=== PATIENT | female | born 1945 | race Caucasian/White ===

== ENCOUNTER 2020-08-09 07:44 | Emergency (ER) | payer MEDICARE, OTHER ==
[2020-08-09 08:43] LABS: #Basophils 0.1 thou/uL (0.0-0.2); #Eosinphils 0.1 thou/uL (0.0-0.7); #Lymphocytes 1.6 thou/uL (1.20-3.40); #Monocytes 0.5 thou/uL (0.11-0.59); #Neutrophils 4.1 thou/uL (1.40-6.50); %Basophils 0.8 % (0.0-1.0); %Eosinophils 2.2 % (0.0-10.0); %Lymphocytes 25.1 % (21.0-51.0); %Monocytes 8.1 % (0.0-10.0); %Neutrophils 63.7 % (42.0-75.0); Hemoglobin 14.9 g/dL (12.0-16.0); Mean Corpuscular HGB CONC 30.1 g/dL (32.0-36.0); Mean Corpuscular Hemoglobin 28.8 pg (27.0-31.0); Mean Corpuscular Volume 95.6 fL (78.0-98.0); Mean Platelet Volume 7.4 fL (7.4-10.4); Platelet Count 311 thou/uL (130-400); RBC Distribution Width 13.7 % (11.5-14.5); Red Blood Cell (RBC) Count 5.18 mill/uL (4.20-5.40); White Blood Cell (WBC) Count 6.4 thou/uL (4.8-10.8)
[2020-08-09 09:02] LABS: ALT (SGPT) 7 U/L (8-55); AST (SGOT) 12 U/L (5-34); Albumin 3.8 g/dL (3.4-4.8); Alkaline Phosphatase 36 U/L (40-110); Anion Gap 13 mmol/L (10-20); BUN (Urea Nitrogen) 48 mg/dL (9.8-20.1); Bilirubin, Total 0.5 mg/dL (0.2-1.2); Calc. Creatinine Clearance 0 mL/min (70-130); Calcium 9.7 mg/dL (7.8-10.44); Carbon Dioxide 25 mmol/L (23-31); Chloride 105 mmol/L (98-107); Globulin 3.5 g/dL (2.4-3.5); Glucose 103 mg/dL (83-110); Protein, Total 7.3 g/dL (5.8-8.1); Sodium 138 mmol/L (136-145)
== END 2020-08-09 11:12 | disposition home or self-care (01) ==
LOC: ERS 07:44
DX: E11.649 Type 2 diabetes mellitus with hypoglycemia without coma (principal); E11.22 Type 2 diabetes mellitus with diabetic chronic kidney disease; N18.9 Chronic kidney disease, unspecified; I50.9 Heart failure, unspecified; F17.210 Nicotine dependence, cigarettes, uncomplicated; Z79.899 Other long term (current) drug therapy; Z79.84 Long term (current) use of oral hypoglycemic drugs
CPT/HCPCS: 36415; 36416; 71045; 80053; 85025; 94760

== ENCOUNTER 2021-01-14 13:31 | Emergency (ER) | payer MEDICARE, OTHER ==
[2021-01-14] MEDS ORDERED: Aspirin 325 MG TAB ONE (14:01)
[2021-01-14 14:10] LABS: #Eosinphils 0.1 thou/uL (0.0-0.7); #Lymphocytes 0.9 thou/uL (1.20-3.40); #Monocytes 0.4 thou/uL (0.11-0.59); %Basophils 0.5 % (0.0-1.0); %Eosinophils 1.4 % (0.0-10.0); %Lymphocytes 19.8 % (21.0-51.0); %Monocytes 9.7 % (0.0-10.0); %Neutrophils 68.6 % (42.0-75.0); Hemoglobin 8.8 g/dL (12.0-16.0); Mean Corpuscular HGB CONC 32.5 g/dL (32.0-36.0); Mean Corpuscular Hemoglobin 32.8 pg (27.0-31.0); Mean Platelet Volume 6.6 fL (7.4-10.4); Platelet Count 348 thou/uL (130-400); Red Blood Cell (RBC) Count 2.68 mill/uL (4.20-5.40); White Blood Cell (WBC) Count 4.4 thou/uL (4.8-10.8)
[2021-01-14 14:34] LABS: ALT (SGPT) 32 U/L (8-55); AST (SGOT) 69 U/L (5-34); Albumin 3.2 g/dL (3.4-4.8); Alkaline Phosphatase 51 U/L (40-110); Anion Gap 10 mmol/L (10-20); BUN (Urea Nitrogen) 29 mg/dL (9.8-20.1); Bilirubin, Total 0.2 mg/dL (0.2-1.2); Calc. Creatinine Clearance 0 mL/min (70-130); Calcium 8.8 mg/dL (7.8-10.44); Carbon Dioxide 29 mmol/L (23-31); Chloride 109 mmol/L (98-107); Globulin 2.3 g/dL (2.4-3.5); Glucose 115 mg/dL (83-110); Potassium 4.7 mmol/L (3.5-5.1); Protein, Total 5.5 g/dL (5.8-8.1); Sodium 143 mmol/L (136-145)
== END 2021-01-14 17:30 | disposition home or self-care (01) ==
LOC: ERS 13:31
DX: R06.00 Dyspnea, unspecified (principal); R55 Syncope and collapse; E11.9 Type 2 diabetes mellitus without complications; I50.9 Heart failure, unspecified; F17.210 Nicotine dependence, cigarettes, uncomplicated
CPT/HCPCS: 36415; 71045; 80053; 83880; 84484; 85025; 93005

== ENCOUNTER 2022-11-08 11:46 | Observation (INO) | payer MEDICARE, OTHER ==
[2022-11-08 12:18] LABS: #Eosinphils 0.3 thou/uL (0.0-0.7); #Monocytes 0.6 thou/uL (0.11-0.59); #Neutrophils 3.7 thou/uL (1.40-6.50); %Basophils 0.6 % (0.0-1.0); %Eosinophils 4.5 % (0.0-10.0); %Lymphocytes 26.6 % (21.0-51.0); %Monocytes 9.4 % (0.0-10.0); %Neutrophils 58.6 % (42.0-75.0); Hematocrit 38.9 % (36.0-47.0); Hemoglobin 12.1 g/dL (12.0-16.0); Mean Corpuscular HGB CONC 31.1 g/dL (32.0-36.0); Mean Corpuscular Hemoglobin 29.7 pg (27.0-31.0); Mean Corpuscular Volume 95.3 fl (78.0-98.0); Mean Platelet Volume 9.1 fL (7.4-10.4); Platelet Count 306 10x3/uL (130-400); RBC Distribution Width 14.5 % (11.5-14.5); Red Blood Cell (RBC) Count 4.08 mill/uL (4.20-5.40); White Blood Cell (WBC) Count 6.3 10x3/uL (4.8-10.8)
[2022-11-08 12:46] LABS: ALT (SGPT) Less than 7 U/L (8-55); AST (SGOT) 11 U/L (5-34); Albumin 3.4 g/dL (3.4-4.8); Alkaline Phosphatase 28 U/L (40-110); Anion Gap 13 mmol/L (10-20); BUN (Urea Nitrogen) 20 mg/dL (9.8-20.1); Bilirubin, Total 0.3 mg/dL (0.2-1.2); Calc. Creatinine Clearance 0 mL/min (70-130); Calcium 8.7 mg/dL (7.8-10.44); Carbon Dioxide 24 mmol/L (23-31); Chloride 108 mmol/L (98-107); Estimated GFR 50; Globulin 2.9 g/dL (2.4-3.5); Glucose 74 mg/dL (83-110); Potassium 4.7 mmol/L (3.5-5.1); Protein, Total 6.3 g/dL (5.8-8.1); Sodium 140 mmol/L (136-145)
[2022-11-08] MEDS ORDERED: Ondansetron ODT 4 MG TAB PO PRN (14:41)
[2022-11-08] MEDS ORDERED: Ondansetron PF 4 MG/2 ML Vial IVP PRN (14:41)
[2022-11-08] MEDS ORDERED: Acetaminophen 500 MG TAB PO PRN (14:41)
[2022-11-08] MEDS: Sodium Chloride 0.9% 1,000 ML IV SCH (16:21)
[2022-11-08] MEDS: Famotidine 20 MG TAB PO SCH (20:42)
[2022-11-08] MEDS ORDERED: Gabapentin 300 MG CAP PO SCH (21:00)
[2022-11-08] MEDS ORDERED: Rosuvastatin 10 MG TAB PO SCH (21:00)
[2022-11-09] MEDS ORDERED: Amlodipine 10 MG TAB PO SCH (03:45)
[2022-11-09] MEDS ORDERED: Amlodipine 5 MG TAB PO SCH (03:45)
[2022-11-09] MEDS: Sodium Chloride 0.9% 1,000 ML IV SCH (03:53)
[2022-11-09 04:53] LABS: #Eosinphils 0.3 thou/uL (0.0-0.7); #Monocytes 0.6 thou/uL (0.11-0.59); #Neutrophils 3.5 thou/uL (1.40-6.50); %Basophils 0.5 % (0.0-1.0); %Eosinophils 4.1 % (0.0-10.0); %Lymphocytes 32.1 % (21.0-51.0); %Monocytes 9.2 % (0.0-10.0); %Neutrophils 53.9 % (42.0-75.0); Hematocrit 38.9 % (36.0-47.0); Hemoglobin 12.4 g/dL (12.0-16.0); Mean Corpuscular HGB CONC 31.9 g/dL (32.0-36.0); Mean Corpuscular Hemoglobin 29.7 pg (27.0-31.0); Mean Corpuscular Volume 93.3 fl (78.0-98.0); Mean Platelet Volume 9.1 fL (7.4-10.4); Platelet Count 309 10x3/uL (130-400); RBC Distribution Width 14.3 % (11.5-14.5); Red Blood Cell (RBC) Count 4.17 mill/uL (4.20-5.40); White Blood Cell (WBC) Count 6.4 10x3/uL (4.8-10.8)
[2022-11-09 05:17] LABS: ALT (SGPT) Less than 7 U/L (8-55); AST (SGOT) 13 U/L (5-34); Albumin 3.4 g/dL (3.4-4.8); Alkaline Phosphatase 29 U/L (40-110); Anion Gap 9 mmol/L (10-20); BUN (Urea Nitrogen) 19 mg/dL (9.8-20.1); Bilirubin, Total 0.3 mg/dL (0.2-1.2); Calc. Creatinine Clearance 49 mL/min (70-130); Calcium 8.7 mg/dL (7.8-10.44); Carbon Dioxide 25 mmol/L (23-31); Chloride 106 mmol/L (98-107); Estimated GFR 61; Globulin 2.9 g/dL (2.4-3.5); Glucose 69 mg/dL (83-110); Magnesium 2.7 mg/dL (1.6-2.6); Potassium 4.4 mmol/L (3.5-5.1); Protein, Total 6.3 g/dL (5.8-8.1); Sodium 136 mmol/L (136-145)
[2022-11-09 07:23] VITALS: TEMP 97.6
[2022-11-09] MEDS ORDERED: Aspirin 81 mg Enteric Coated Tablet PO SCH (09:00)
[2022-11-09] MEDS ORDERED: Gabapentin 300 MG CAP PO SCH (09:00)
[2022-11-09] MEDS ORDERED: Cholecalciferol 1,000 UNITS (25 MCG) TAB PO SCH (09:00)
[2022-11-09] MEDS ORDERED: Clopidogrel Bisulfate 75 MG TAB PO SCH (09:00)
[2022-11-09] MEDS: Famotidine 20 MG TAB PO SCH (09:23)
[2022-11-09 09:47] VITALS: BMI 26.1
[2022-11-09 10:42] VITALS: BP 126/57
[2022-11-10] MEDS ORDERED: Famotidine 20 MG TAB PO SCH (09:00)
== END 2022-11-09 11:45 | disposition home or self-care (01) ==
LOC: ERS 11:46 → 2SW 15:31
PROVIDERS: ADMIT Family Medicine; ATTEND Family Medicine
DX: I48.0 Paroxysmal atrial fibrillation (principal); I25.10 Atherosclerotic heart disease of native coronary artery without angina pectoris; I73.9 Peripheral vascular disease, unspecified; E78.5 Hyperlipidemia, unspecified; R53.83 Other fatigue; I25.2 Old myocardial infarction; I49.5 Sick sinus syndrome; I71.40 Abdominal aortic aneurysm, without rupture, unspecified; I65.22 Occlusion and stenosis of left carotid artery; N18.30 Chronic kidney disease, stage 3 unspecified; N17.9 Acute kidney failure, unspecified; E11.22 Type 2 diabetes mellitus with diabetic chronic kidney disease; I95.1 Orthostatic hypotension; I12.9 Hypertensive chronic kidney disease with stage 1 through stage 4 chronic kidney disease, or unspecified chronic kidney disease; M06.9 Rheumatoid arthritis, unspecified; Z79.899 Other long term (current) drug therapy; F17.210 Nicotine dependence, cigarettes, uncomplicated; Z95.0 Presence of cardiac pacemaker; Z79.84 Long term (current) use of oral hypoglycemic drugs
CPT/HCPCS: 71045; 80053; 82962 ×2; 83735; 83880; 84484; 85025; 93005; 93880; 99285; G0378 ×2; 36415; 36416; 84443; J7050

== ENCOUNTER 2023-02-26 12:46 | Inpatient (IN) | payer MEDICARE, OTHER ==
[~2023-02-26 12:46] MED LIST: Iopamidol-370 76% 500 ML MDV (1 ML CHARGE) ONE
[2023-02-26] MEDS ORDERED: fentaNYL 50 mcg/mL 1 mL Vial ONE (13:08)
[2023-02-26] MEDS ORDERED: Fentanyl CADD 100 ML IV SCH (13:15)
[2023-02-26] MEDS ORDERED: Vancomycin (BATCH) 1.5 GM in Premix 1 BAG IVPB SCH (13:15)
[2023-02-26] MEDS ORDERED: Magnesium 2 GM/50 ML BAG (IN WATER) ONE (13:21)
[2023-02-26] MEDS ORDERED: NOREPINEPHRINE 8 MG/250 ML-D5W 250 ML ONE (13:22)
[2023-02-26 13:44] LABS: #Eosinphils 0.1 thou/uL (0.0-0.7); #Monocytes 1.1 thou/uL (0.11-0.59); #Neutrophils 6.1 thou/uL (1.40-6.50); %Basophils 0.2 % (0.0-1.0); %Eosinophils 0.8 % (0.0-10.0); %Lymphocytes 16.1 % (21.0-51.0); %Monocytes 12.2 % (0.0-10.0); %Neutrophils 70.2 % (42.0-75.0); Hematocrit 44.1 % (36.0-47.0); Hemoglobin 13.6 g/dL (12.0-16.0); Mean Corpuscular HGB CONC 30.8 g/dL (32.0-36.0); Mean Corpuscular Hemoglobin 28.8 pg (27.0-31.0); Mean Corpuscular Volume 93.2 fl (78.0-98.0); Mean Platelet Volume 9.8 fL (7.4-10.4); Platelet Count 319 10x3/uL (130-400); RBC Distribution Width 14.5 % (11.5-14.5); Red Blood Cell (RBC) Count 4.73 mill/uL (4.20-5.40); White Blood Cell (WBC) Count 8.7 10x3/uL (4.8-10.8)
[2023-02-26 13:49] LABS: ALT (SGPT) 12 U/L (8-55); AST (SGOT) 31 U/L (5-34); Albumin 3.7 g/dL (3.4-4.8); Alkaline Phosphatase 45 U/L (40-110); Anion Gap 15 mmol/L (10-20); BUN (Urea Nitrogen) 43 mg/dL (9.8-20.1); Bilirubin, Total 0.4 mg/dL (0.2-1.2); Calc. Creatinine Clearance 0 mL/min (70-130); Calcium 9.6 mg/dL (7.8-10.44); Carbon Dioxide 26 mmol/L (23-31); Chloride 100 mmol/L (98-107); Estimated GFR 36; Globulin 4.5 g/dL (2.4-3.5); Glucose 110 mg/dL (83-110); Potassium 5.4 mmol/L (3.5-5.1); Protein, Total 8.2 g/dL (5.8-8.1); Sodium 136 mmol/L (136-145)
[2023-02-26 13:49] LABS: Analyzer IN Cardio ER; Base Excess (BEa) -3.8 mEq/L (-2.0 to +3.0); Calcium, Ionized (arterial) 1.24 mmol/L (1.12-1.30); Carboxyhemoglobin (COHb) 1.9 gm% (0.0-3.0); Hematocrit-ABG 39 % (36.0-47.0); Hemoglobin (Hb) 13.2 g/dL (12.0-16.0); O2 Tension (PaO2), arterial 112.9 mmHg (> 70.0); Potassium - ABG Lab 4.74 mmol/L (3.70-5.30); pH, Arterial 7.217 (7.35-7.45)
[2023-02-26 13:51] LABS: CO2 Tension 62.8 mmHg (35.0-45.0); Puncture Site LBA
[2023-02-26] MEDS ORDERED: Sodium Chloride 0.9% 100 ML ONE (14:00)
[2023-02-26] MEDS ORDERED: Cefepime 2 GM VIAL ONE (14:00)
[2023-02-26 14:17] LABS: Troponin I 1.774 ng/mL (< 0.028)
[2023-02-26 14:26] LABS: Acetaminophen Less than 10 mcg/mL (10.0-30.0); Alcohol Less than 10.0 mg/dL (Less than 10); Salicylate Less than 8.0 mg/dL (15.0-30.0)
[2023-02-26] MEDS ORDERED: Furosemide 40 MG/4 ML VIAL ONE (14:57)
[2023-02-26] MEDS ORDERED: methylPREDNISolone Sod Succ/PF 125 MG/2 ML VIAL ONE (14:58)
[2023-02-26 15:05] LABS: Amphetamine Not Detected (NotDetected); Barbiturates Screen Not Detected (NotDetected); Benzodiazepine Screen Not Detected (NotDetected); Cocaine Metabolite Screen Not Detected (NotDetected); Methadone Not Detected (NotDetected); Methamphetamine Not Detected (NotDetected); Opiate Screen Detected (NotDetected); Oxycodone Screen Not Detected (NotDetected); Phencyclidine (PCP) Not Detected (NotDetected); THC/Cannabinoid Screen Not Detected (NotDetected); Tricyclic Screen Not Detected (NotDetected)
[2023-02-26 15:11] LABS: Bacteria/HPF 4+ HPF (None Seen); Bilirubin Negative (Negative); Blood, Urine 1+ (Negative); CAUTI Indications for Culture Alt mental st,lethar; Clarity Clear (Clear); Glucose, Urine (Dipstick) Normal (Negative); Ketone, Urine Negative (Negative); Leukocyte Negative Leu/uL (Negative); Nitrite Negative (Negative); Protein, Urine (Dipstick) 50 mg/dL (Neg-Trace); Specific Gravity, Urine 1.022 (1.002-1.036); Squamous Epithelial 0-3 HPF (0-3); Urobilinogen Normal mg/dL (Less than 2); WBC/HPF 0-3 HPF (0-3)
[2023-02-26 15:14] LABS: Urine Culture Reflex No No
[2023-02-26] MEDS ORDERED: Ipratropium/Albuterol 3 ML NEB NEB PRN (16:03)
[2023-02-26] MEDS ORDERED: NOREPINEPHRINE 8 MG/250 ML-D5W 250 ML IVPB SCH (16:15)
[2023-02-26] MEDS ORDERED: Vancomycin 1 GM in Premix 1 BAG IVPB SCH (16:15)
[2023-02-26] MEDS ORDERED: Aspirin 300 MG Suppository ONE (16:30)
[2023-02-26] MEDS ORDERED: Dextrose 50% Abboject 50 ML SYRINGE SLOW IVP PRN (16:36)
[2023-02-26] MEDS ORDERED: Glucagon 1 MG/ML KIT IM PRN (16:36)
[2023-02-26] MEDS ORDERED: Dextrose 5% in Water 1,000 ML IV PRN (16:36)
[2023-02-26 18:49] LABS: SARS-CoV-2 NAA Rapid Test Not Detected (NotDetected)
[2023-02-26 19:00] VITALS: BMI 20.2
[2023-02-26 19:04] LABS: Troponin I 2.552 ng/mL (< 0.028)
[2023-02-26] MEDS: methylPREDNISolone Sod Succ 40 MG VIAL IVP SCH ×2 (19:33→23:35)
[2023-02-26] MEDS: Sodium Chloride 0.9% 1,000 ML IV SCH (19:34)
[2023-02-26] MEDS ORDERED: VANCOMYCIN IVPB PRN (20:13)
[2023-02-26] MEDS ORDERED: Vancomycin Dose by Levels Sliding Scale (Wt <71) FS SCH (20:15)
[2023-02-26] MEDS: Famotidine/PF 20 mg/2ml Vial SLOW IVP SCH (20:40)
[2023-02-26 21:14] LABS: Critical Call Chem Troponin I RESULT DECREASING; Troponin I 2.209 ng/mL (< 0.028)
[2023-02-26] MEDS ORDERED: Fentanyl BOLUS 250 ML IVPB PRN (22:00)
[2023-02-26] MEDS ORDERED: Morphine 2 MG/ML VIAL SLOW IVP PRN (22:00)
[2023-02-26] MEDS ORDERED: Propofol BOLUS 1,000 MG/100 ML VIAL IV PRN (22:00)
[2023-02-26] MEDS ORDERED: DISCONTINUE PREVIOUS NARCOTIC PAIN MEDICATIONS AND BENZODIAZEPINES FS SCH (22:00)
[2023-02-26] MEDS: Lorazepam 2 MG/ML VIAL SLOW IVP PRN (22:12)
[2023-02-26] MEDS: HumaLOG 300 UNITS/3 ML VIAL SC PRN (23:43)
[2023-02-27 04:28] LABS: #Monocytes 0.3 thou/uL (0.11-0.59); #Neutrophils 5.8 thou/uL (1.40-6.50); %Basophils 0.1 % (0.0-1.0); %Lymphocytes 10.5 % (21.0-51.0); %Monocytes 3.8 % (0.0-10.0); %Neutrophils 85.3 % (42.0-75.0); Hemoglobin 11.5 g/dL (12.0-16.0); Mean Corpuscular HGB CONC 31.9 g/dL (32.0-36.0); Mean Corpuscular Hemoglobin 28.8 pg (27.0-31.0); Mean Platelet Volume 9.8 fL (7.4-10.4); Platelet Count 276 10x3/uL (130-400); RBC Distribution Width 14.2 % (11.5-14.5); White Blood Cell (WBC) Count 6.8 10x3/uL (4.8-10.8)
[2023-02-27 04:52] LABS: ALT (SGPT) 9 U/L (8-55); AST (SGOT) 23 U/L (5-34); Albumin 3.1 g/dL (3.4-4.8); Alkaline Phosphatase 34 U/L (40-110); Anion Gap 12 mmol/L (10-20); BUN (Urea Nitrogen) 40 mg/dL (9.8-20.1); Bilirubin, Total 0.4 mg/dL (0.2-1.2); Calc. Creatinine Clearance 38 mL/min (70-130); Calcium 8.7 mg/dL (7.8-10.44); Carbon Dioxide 25 mmol/L (23-31); Chloride 106 mmol/L (98-107); Estimated GFR 49; Globulin 3.3 g/dL (2.4-3.5); Glucose 110 mg/dL (83-110); Potassium 4.2 mmol/L (3.5-5.1); Protein, Total 6.4 g/dL (5.8-8.1); Sodium 139 mmol/L (136-145)
[2023-02-27] MEDS: methylPREDNISolone Sod Succ 40 MG VIAL IVP SCH ×4 (05:23→23:55)
[2023-02-27] MEDS: Sodium Chloride 0.9% 1,000 ML IV SCH ×2 (07:31→22:12)
[2023-02-27 07:49] LABS: Actual Bicarbonate (HCO3a) 19.6 mEq/L (22-28); Base Excess (BEa) -4.6 mEq/L (-2.0 to +3.0); CO2 Tension 33.9 mmHg (35.0-45.0); Calcium, Ionized (arterial) 1.17 mmol/L (1.12-1.30); Carboxyhemoglobin (COHb) 0.5 gm% (0.0-3.0); Hematocrit-ABG 39 % (36.0-47.0); Hemoglobin (Hb) 13.1 g/dL (12.0-16.0); O2 Tension (PaO2), arterial 60.2 mmHg (> 70.0); Potassium - ABG Lab 4.27 mmol/L (3.70-5.30); Puncture Site RRA; pH, Arterial 7.381 (7.35-7.45)
[2023-02-27 07:50] LABS: ALV-art Gradient 182.625 mmHg (0-20)
[2023-02-27] MEDS: Propofol 1,000 MG/100 ML VIAL IV PRN (08:09)
[2023-02-27] MEDS: Famotidine/PF 20 mg/2ml Vial SLOW IVP SCH ×2 (08:09→20:34)
[2023-02-27] MEDS ORDERED: Vecuronium 10 MG VIAL IVP SCH (09:30)
[2023-02-27] MEDS: Ipratropium/Albuterol 3 ML NEB NEB SCH ×4 (10:55→21:39)
[2023-02-27] MEDS: Cefepime 1 GM in Sodium Chloride 0.9% 100 ML IVPB SCH (12:57)
[2023-02-27] MEDS: Lorazepam 2 MG/ML VIAL SLOW IVP PRN ×2 (13:41→20:52)
[2023-02-27] MEDS ORDERED: Cefepime 1 GM in Sodium Chloride 0.9% 100 ML IVPB SCH (14:00)
[2023-02-27 14:21] LABS: Vancomycin, Random 12.7 ug/mL (See Comment)
[2023-02-27] MEDS ORDERED: Fentanyl CADD 100 ML IV SCH (14:30)
[2023-02-27] MEDS ORDERED: Vancomycin HCl 500 MG in Sodium Chloride 0.9% 100 ML IV SCH (14:45)
[2023-02-27] MEDS: Icosapent Ethyl 1 GM CAPSULE PO SCH (20:34)
[2023-02-27] MEDS: Rosuvastatin 10 MG TAB PO SCH (20:34)
[2023-02-27] MEDS: HumaLOG 300 UNITS/3 ML VIAL SC PRN (22:10)
[2023-02-28] MEDS: Propofol 1,000 MG/100 ML VIAL IV PRN (00:44)
[2023-02-28] MEDS: Cefepime 1 GM in Sodium Chloride 0.9% 100 ML IVPB SCH ×2 (01:12→12:57)
[2023-02-28] MEDS: Ipratropium/Albuterol 3 ML NEB NEB SCH ×6 (02:31→22:33)
[2023-02-28] MEDS: HumaLOG 300 UNITS/3 ML VIAL SC PRN ×2 (04:23→10:05)
[2023-02-28 04:52] LABS: #Monocytes 0.3 thou/uL (0.11-0.59); #Neutrophils 7.8 thou/uL (1.40-6.50); %Lymphocytes 5.2 % (21.0-51.0); %Monocytes 3.8 % (0.0-10.0); %Neutrophils 90.7 % (42.0-75.0); Hematocrit 34.2 % (36.0-47.0); Hemoglobin 10.9 g/dL (12.0-16.0); Mean Corpuscular HGB CONC 31.9 g/dL (32.0-36.0); Mean Corpuscular Hemoglobin 28.9 pg (27.0-31.0); Mean Corpuscular Volume 90.7 fl (78.0-98.0); Mean Platelet Volume 10.1 fL (7.4-10.4); Platelet Count 309 10x3/uL (130-400); RBC Distribution Width 14.5 % (11.5-14.5); Red Blood Cell (RBC) Count 3.77 mill/uL (4.20-5.40); White Blood Cell (WBC) Count 8.6 10x3/uL (4.8-10.8)
[2023-02-28 05:14] LABS: Anion Gap 12 mmol/L (10-20); BUN (Urea Nitrogen) 42 mg/dL (9.8-20.1); Calc. Creatinine Clearance 43 mL/min (70-130); Calcium 8.4 mg/dL (7.8-10.44); Carbon Dioxide 20 mmol/L (23-31); Chloride 110 mmol/L (98-107); Estimated GFR 54; Glucose 291 mg/dL (83-110); Potassium 4.2 mmol/L (3.5-5.1); Sodium 138 mmol/L (136-145)
[2023-02-28] MEDS: methylPREDNISolone Sod Succ 40 MG VIAL IVP SCH ×3 (05:49→18:27)
[2023-02-28 06:49] LABS: Actual Bicarbonate (HCO3a) 18.7 mEq/L (22-28); Base Excess (BEa) -6.4 mEq/L (-2.0 to +3.0); Calcium, Ionized (arterial) 1.21 mmol/L (1.12-1.30); Carboxyhemoglobin (COHb) 0.5 gm% (0.0-3.0); Hematocrit-ABG 45 % (36.0-47.0); Hemoglobin (Hb) 15.4 g/dL (12.0-16.0); O2 Tension (PaO2), arterial 72.5 mmHg (> 70.0); Potassium - ABG Lab 4.26 mmol/L (3.70-5.30); pH, Arterial 7.333 (7.35-7.45)
[2023-02-28 07:22] LABS: Puncture Site RBA
[2023-02-28] MEDS ORDERED: DC Sedation Protocol FS ONE (09:03)
[2023-02-28] MEDS: Sodium Chloride 0.9% 1,000 ML IV SCH ×2 (10:05→12:57)
[2023-02-28] MEDS: Fenofibrate Nanocrystallized 145 MG TAB PO SCH (10:06)
[2023-02-28] MEDS: Icosapent Ethyl 1 GM CAPSULE PO SCH ×2 (10:07→20:52)
[2023-02-28] MEDS: Aspirin 81 mg Enteric Coated Tablet PO SCH (10:07)
[2023-02-28] MEDS: Amlodipine 5 MG TAB PO SCH (10:07)
[2023-02-28] MEDS: Isosorbide Mononitrate 60 MG ER.TAB PO SCH (10:07)
[2023-02-28] MEDS: Famotidine/PF 20 mg/2ml Vial SLOW IVP SCH (10:08)
[2023-02-28] MEDS: Clopidogrel Bisulfate 75 MG TAB PO SCH (10:08)
[2023-02-28] MEDS: Bisoprolol Fumarate 5 MG TAB PO SCH (11:06)
[2023-02-28 15:17] LABS: Vancomycin, Random 9.1 ug/mL (See Comment)
[2023-02-28] MEDS ORDERED: Vancomycin HCl 750 MG in Sodium Chloride 0.9% 250 ML 250 ML IVPB SCH (15:30)
[2023-02-28] MEDS: Rosuvastatin 10 MG TAB PO SCH (20:52)
[2023-02-28] MEDS ORDERED: hydrALAZINE 20 MG/ML VIAL SLOW IVP SCH (21:30)
[2023-02-28] MEDS: Insulin Glargine 30 UNITS/0.3 ML VIAL SC SCH (22:42)
[2023-02-28] MEDS ORDERED: HumaLOG 300 UNITS/3 ML VIAL SC PRN (23:45)
[2023-03-01] MEDS: methylPREDNISolone Sod Succ 40 MG VIAL IVP SCH ×4 (00:19→17:44)
[2023-03-01] MEDS: Ipratropium/Albuterol 3 ML NEB NEB SCH ×6 (02:28→22:41)
[2023-03-01] MEDS: Cefepime 1 GM in Sodium Chloride 0.9% 100 ML IVPB SCH ×2 (02:54→14:34)
[2023-03-01] MEDS: Sodium Chloride 0.9% 1,000 ML IV SCH ×2 (03:01→17:43)
[2023-03-01] MEDS: HumaLOG 300 UNITS/3 ML VIAL SC PRN (03:42)
[2023-03-01 04:43] LABS: #Monocytes 0.3 thou/uL (0.11-0.59); #Neutrophils 9.8 thou/uL (1.40-6.50); %Basophils 0.1 % (0.0-1.0); %Lymphocytes 4.9 % (21.0-51.0); %Neutrophils 90.7 % (42.0-75.0); Hematocrit 35.9 % (36.0-47.0); Hemoglobin 11.5 g/dL (12.0-16.0); Mean Corpuscular Hemoglobin 29.3 pg (27.0-31.0); Mean Corpuscular Volume 91.6 fl (78.0-98.0); Mean Platelet Volume 9.7 fL (7.4-10.4); Platelet Count 360 10x3/uL (130-400); RBC Distribution Width 14.4 % (11.5-14.5); Red Blood Cell (RBC) Count 3.92 mill/uL (4.20-5.40); White Blood Cell (WBC) Count 10.8 10x3/uL (4.8-10.8)
[2023-03-01 05:09] LABS: Anion Gap 11 mmol/L (10-20); BUN (Urea Nitrogen) 30 mg/dL (9.8-20.1); Calc. Creatinine Clearance 52 mL/min (70-130); Calcium 8.8 mg/dL (7.8-10.44); Carbon Dioxide 26 mmol/L (23-31); Chloride 110 mmol/L (98-107); Estimated GFR 68; Glucose 149 mg/dL (83-110); Potassium 4.6 mmol/L (3.5-5.1); Sodium 142 mmol/L (136-145)
[2023-03-01] MEDS: Bisoprolol Fumarate 5 MG TAB PO SCH (08:35)
[2023-03-01] MEDS: Aspirin 81 mg Enteric Coated Tablet PO SCH (08:35)
[2023-03-01] MEDS: Clopidogrel Bisulfate 75 MG TAB PO SCH (08:35)
[2023-03-01] MEDS: Fenofibrate Nanocrystallized 145 MG TAB PO SCH (08:35)
[2023-03-01] MEDS: Isosorbide Mononitrate 60 MG ER.TAB PO SCH (08:35)
[2023-03-01] MEDS: Amlodipine 5 MG TAB PO SCH (08:35)
[2023-03-01] MEDS: Famotidine/PF 20 mg/2ml Vial SLOW IVP SCH (08:36)
[2023-03-01] MEDS: Icosapent Ethyl 1 GM CAPSULE PO SCH ×2 (08:36→22:36)
[2023-03-01] MEDS ORDERED: FLU VACC QS2023(65UP)/MF59C/PF 60 MCG/0.5 ML SYRINGE IM ONE (09:00)
[2023-03-01] MEDS: Insulin Glargine 30 UNITS/0.3 ML VIAL SC SCH ×2 (09:11→22:38)
[2023-03-01] MEDS: Labetalol HCl 100 MG/20 ML VIAL SLOW IVP PRN ×4 (10:01→22:55)
[2023-03-01] MEDS: hydrALAZINE 25 MG TAB PO SCH ×2 (15:06→22:37)
[2023-03-01] MEDS: Rosuvastatin 10 MG TAB PO SCH (22:37)
[2023-03-01] MEDS: Lisinopril 5 MG TAB PO SCH (22:37)
[2023-03-02] MEDS: methylPREDNISolone Sod Succ 40 MG VIAL IVP SCH ×3 (00:41→12:20)
[2023-03-02] MEDS: Cefepime 1 GM in Sodium Chloride 0.9% 100 ML IVPB SCH (02:18)
[2023-03-02] MEDS: Ipratropium/Albuterol 3 ML NEB NEB SCH ×6 (03:30→22:47)
[2023-03-02] MEDS: Labetalol HCl 100 MG/20 ML VIAL SLOW IVP PRN (05:11)
[2023-03-02 05:49] LABS: #Monocytes 0.6 thou/uL (0.11-0.59); #Neutrophils 7.8 thou/uL (1.40-6.50); %Basophils 0.2 % (0.0-1.0); %Lymphocytes 5.9 % (21.0-51.0); %Monocytes 6.8 % (0.0-10.0); %Neutrophils 83.2 % (42.0-75.0); Hematocrit 37.9 % (36.0-47.0); Hemoglobin 12.1 g/dL (12.0-16.0); Mean Corpuscular HGB CONC 31.9 g/dL (32.0-36.0); Mean Corpuscular Hemoglobin 29.2 pg (27.0-31.0); Mean Corpuscular Volume 91.5 fl (78.0-98.0); Mean Platelet Volume 9.4 fL (7.4-10.4); Platelet Count 388 10x3/uL (130-400); RBC Distribution Width 14.2 % (11.5-14.5); Red Blood Cell (RBC) Count 4.14 mill/uL (4.20-5.40); White Blood Cell (WBC) Count 9.4 10x3/uL (4.8-10.8)
[2023-03-02 06:10] LABS: Anion Gap 12 mmol/L (10-20); BUN (Urea Nitrogen) 27 mg/dL (9.8-20.1); Calc. Creatinine Clearance 54 mL/min (70-130); Calcium 9.5 mg/dL (7.8-10.44); Carbon Dioxide 28 mmol/L (23-31); Chloride 108 mmol/L (98-107); Estimated GFR 72; Glucose 145 mg/dL (83-110); Potassium 4.5 mmol/L (3.5-5.1); Sodium 143 mmol/L (136-145)
[2023-03-02] MEDS: Fenofibrate Nanocrystallized 145 MG TAB PO SCH (09:54)
[2023-03-02] MEDS: Icosapent Ethyl 1 GM CAPSULE PO SCH ×2 (09:54→20:09)
[2023-03-02] MEDS: Isosorbide Mononitrate 60 MG ER.TAB PO SCH (09:54)
[2023-03-02] MEDS: hydrALAZINE 25 MG TAB PO SCH ×3 (09:55→20:09)
[2023-03-02] MEDS: Amlodipine 10 MG TAB PO SCH (09:55)
[2023-03-02] MEDS: Bisoprolol Fumarate 5 MG TAB PO SCH (09:55)
[2023-03-02] MEDS: Lisinopril 5 MG TAB PO SCH ×2 (09:55→20:09)
[2023-03-02] MEDS: Clopidogrel Bisulfate 75 MG TAB PO SCH (09:55)
[2023-03-02] MEDS: Aspirin 81 mg Enteric Coated Tablet PO SCH (09:55)
[2023-03-02] MEDS: Famotidine/PF 20 mg/2ml Vial SLOW IVP SCH (09:55)
[2023-03-02] MEDS: Insulin Glargine 30 UNITS/0.3 ML VIAL SC SCH ×2 (09:56→20:10)
[2023-03-02] MEDS ORDERED: Morphine 2 MG/ML VIAL SLOW IVP PRN (10:08)
[2023-03-02] MEDS: HYDROcodone/Acetaminophen 5/325 mg Tablet PO PRN (10:55)
[2023-03-02 12:36] VITALS: TEMP 97.5
[2023-03-02] MEDS: Sodium Chloride 0.9% 1,000 ML IV SCH (15:36)
[2023-03-02] MEDS: HumaLOG 300 UNITS/3 ML VIAL SC PRN (18:00)
[2023-03-02] MEDS: Rosuvastatin 10 MG TAB PO SCH (20:10)
[2023-03-02] MEDS ORDERED: Gabapentin 300 MG CAP PO SCH (21:00)
[2023-03-03] MEDS: Ipratropium/Albuterol 3 ML NEB NEB SCH ×3 (03:05→08:27)
[2023-03-03] MEDS: Sodium Chloride 0.9% 1,000 ML IV SCH (04:16)
[2023-03-03 05:04] LABS: #Monocytes 0.7 thou/uL (0.11-0.59); #Neutrophils 5.2 thou/uL (1.40-6.50); %Basophils 0.5 % (0.0-1.0); %Eosinophils 0.1 % (0.0-10.0); %Lymphocytes 14.9 % (21.0-51.0); %Monocytes 9.7 % (0.0-10.0); Hematocrit 37.6 % (36.0-47.0); Hemoglobin 12.4 g/dL (12.0-16.0); Mean Corpuscular Hemoglobin 29.2 pg (27.0-31.0); Mean Platelet Volume 9.4 fL (7.4-10.4); Platelet Count 385 10x3/uL (130-400); RBC Distribution Width 13.9 % (11.5-14.5); Red Blood Cell (RBC) Count 4.25 mill/uL (4.20-5.40); White Blood Cell (WBC) Count 7.5 10x3/uL (4.8-10.8)
[2023-03-03 05:06] LABS: Mean Corpuscular Volume 88.5 fl (78.0-98.0)
[2023-03-03 05:32] LABS: Anion Gap 11 mmol/L (10-20); BUN (Urea Nitrogen) 21 mg/dL (9.8-20.1); Calc. Creatinine Clearance 63 mL/min (70-130); Calcium 9.4 mg/dL (7.8-10.44); Carbon Dioxide 32 mmol/L (23-31); Chloride 101 mmol/L (98-107); Estimated GFR 86; Glucose 69 mg/dL (83-110); Sodium 140 mmol/L (136-145)
[2023-03-03] MEDS ORDERED: Cefdinir 300 MG CAP PO SCH (09:00)
[2023-03-03] MEDS ORDERED: predniSONE 20 MG TAB PO SCH (09:00)
[2023-03-03] MEDS: HYDROcodone/Acetaminophen 5/325 mg Tablet PO PRN (09:04)
[2023-03-03] MEDS: Clopidogrel Bisulfate 75 MG TAB PO SCH (09:08)
[2023-03-03] MEDS: Aspirin 81 mg Enteric Coated Tablet PO SCH (09:09)
[2023-03-03] MEDS: Fenofibrate Nanocrystallized 145 MG TAB PO SCH (09:09)
[2023-03-03] MEDS: Isosorbide Mononitrate 60 MG ER.TAB PO SCH (09:09)
[2023-03-03] MEDS: Bisoprolol Fumarate 5 MG TAB PO SCH (09:09)
[2023-03-03] MEDS: Amlodipine 10 MG TAB PO SCH (09:09)
[2023-03-03] MEDS: Lisinopril 5 MG TAB PO SCH (09:09)
[2023-03-03] MEDS: hydrALAZINE 25 MG TAB PO SCH (09:09)
[2023-03-03] MEDS: Icosapent Ethyl 1 GM CAPSULE PO SCH (09:10)
[2023-03-03] MEDS: Famotidine/PF 20 mg/2ml Vial SLOW IVP SCH (09:10)
[2023-03-03] MEDS: Insulin Glargine 30 UNITS/0.3 ML VIAL SC SCH (09:10)
[2023-03-03 13:30] VITALS: BP 138/64
== END 2023-03-03 17:23 | disposition home or self-care (01) | DRG 871 ==
LOC: EDUNIT# 12:46 → ERS 12:46 → CCU 14:08 → 2NO 03-01 19:38
PROVIDERS: ADMIT Internal Medicine; ATTEND Internal Medicine
PROC: 0BH17EZ Insertion of Endotracheal Airway into Trachea, Via Natural or Artificial Opening (ICD-10-PCS; principal; 2023-02-26)
PROC: 4A133R1 Monitoring of Arterial Saturation, Peripheral, Percutaneous Approach (ICD-10-PCS; 2023-02-26)
PROC: 3E033XZ Introduction of Vasopressor into Peripheral Vein, Percutaneous Approach (ICD-10-PCS; 2023-02-26)
PROC: 3E03329 Introduction of Other Anti-infective into Peripheral Vein, Percutaneous Approach (ICD-10-PCS; 2023-02-26)
PROC: 5A1945Z Respiratory Ventilation, 24-96 Consecutive Hours (ICD-10-PCS; 2023-02-26)
PROC: 0BJ08ZZ Inspection of Tracheobronchial Tree, Via Natural or Artificial Opening Endoscopic (ICD-10-PCS; 2023-02-27)
PROC: 02HV33Z Insertion of Infusion Device into Superior Vena Cava, Percutaneous Approach (ICD-10-PCS; 2023-02-28)
PROC: B5181ZA Fluoroscopy of Superior Vena Cava using Low Osmolar Contrast, Guidance (ICD-10-PCS; 2023-02-28)
DX: A41.9 Sepsis, unspecified organism (principal); G93.41 Metabolic encephalopathy; I21.A1 Myocardial infarction type 2; J18.9 Pneumonia, unspecified organism; J96.21 Acute and chronic respiratory failure with hypoxia; N17.9 Acute kidney failure, unspecified; N39.0 Urinary tract infection, site not specified; I25.10 Atherosclerotic heart disease of native coronary artery without angina pectoris; I73.9 Peripheral vascular disease, unspecified; I12.9 Hypertensive chronic kidney disease with stage 1 through stage 4 chronic kidney disease, or unspecified chronic kidney disease; N18.30 Chronic kidney disease, stage 3 unspecified; I71.40 Abdominal aortic aneurysm, without rupture, unspecified; E78.5 Hyperlipidemia, unspecified; E11.22 Type 2 diabetes mellitus with diabetic chronic kidney disease; E87.5 Hyperkalemia; I50.9 Heart failure, unspecified; R53.81 Other malaise; F19.10 Other psychoactive substance abuse, uncomplicated; J44.9 Chronic obstructive pulmonary disease, unspecified; Z79.899 Other long term (current) drug therapy; Z79.84 Long term (current) use of oral hypoglycemic drugs; Z79.82 Long term (current) use of aspirin; Z95.1 Presence of aortocoronary bypass graft; Z82.49 Family history of ischemic heart disease and other diseases of the circulatory system; Z87.891 Personal history of nicotine dependence; Z71.6 Tobacco abuse counseling; Z11.52 Encounter for screening for COVID-19
CPT/HCPCS: 31500; 36415; 36416; 36600; 70450; 71045; 71275; 74177; 80048; 80053; 80202; 80306; 80307; 81001; 82805; 83605; 83735; 83880; 84484; 85025; 85379; 86140; 86850; 86900; 86901; 87040; 87070; 87077; 87081; 87086; 87149; 87205; 90471; 90694; 93005; 93306; 94002; 94003; 94640; G0008; J0360; J0692; J1650; J1815; J1940; J2060; J2704; J2920; J2930; J3010; J3370; J3475; J3490; J7050; J7512; J7620; Q9967; S0028; U0002

== ENCOUNTER 2023-05-22 00:22 | Inpatient (IN) | payer MEDICARE, OTHER ==
[2023-05-22 01:10] LABS: Actual Bicarbonate (HCO3a) 26.3 mEq/L (22-28); Analyzer IN Cardio ER; Base Excess (BEa) -2.9 mEq/L (-2.0 to +3.0); Calcium, Ionized (arterial) 1.13 mmol/L (1.12-1.30); Carboxyhemoglobin (COHb) 5.8 gm% (0.0-3.0); Hematocrit-ABG 33 % (36.0-47.0); Hemoglobin (Hb) 11.2 g/dL (12.0-16.0); Potassium - ABG Lab 5.18 mmol/L (3.70-5.30)
[2023-05-22 01:18] LABS: CO2 Tension 70.1 mmHg (35.0-45.0); pH, Arterial 7.192 (7.35-7.45)
[2023-05-22 01:19] LABS: ALV-art Gradient 55.215 mmHg (0-20); O2 Tension (PaO2), arterial 56.8 mmHg (> 70.0); Puncture Site LRA
[2023-05-22 01:37] LABS: #Monocytes 0.1 thou/uL (0.11-0.59); #Neutrophils 4.5 thou/uL (1.40-6.50); %Basophils 0.2 % (0.0-1.0); %Eosinophils 0.2 % (0.0-10.0); %Lymphocytes 8.4 % (21.0-51.0); %Monocytes 1.4 % (0.0-10.0); %Neutrophils 89.6 % (42.0-75.0); Hematocrit 35.3 % (36.0-47.0); Hemoglobin 10.1 g/dL (12.0-16.0); Mean Corpuscular HGB CONC 28.6 g/dL (32.0-36.0); Mean Corpuscular Hemoglobin 28.9 pg (27.0-31.0); Mean Corpuscular Volume 101.1 fl (78.0-98.0); Mean Platelet Volume 9.2 fL (7.4-10.4); Platelet Count 320 10x3/uL (130-400); RBC Distribution Width 19.2 % (11.5-14.5); Red Blood Cell (RBC) Count 3.49 mill/uL (4.20-5.40)
[2023-05-22 01:59] LABS: ALT (SGPT) Less than 7 U/L (8-55); AST (SGOT) 15 U/L (5-34); Alkaline Phosphatase 28 U/L (40-110); Anion Gap 10 mmol/L (10-20); BUN (Urea Nitrogen) 19 mg/dL (9.8-20.1); Bilirubin, Total 0.3 mg/dL (0.2-1.2); Calc. Creatinine Clearance 0 mL/min (70-130); Calcium 7.7 mg/dL (7.8-10.44); Carbon Dioxide 24 mmol/L (23-31); Chloride 112 mmol/L (98-107); Estimated GFR 40; Globulin 2.7 g/dL (2.4-3.5); Glucose 138 mg/dL (83-110); Lipase 11 U/L (8-78); Magnesium 1.9 mg/dL (1.6-2.6); Potassium 5.4 mmol/L (3.5-5.1); Protein, Total 5.7 g/dL (5.8-8.1); Sodium 141 mmol/L (136-145)
[2023-05-22 02:03] LABS: Troponin I 0.013 ng/mL (< 0.028)
[2023-05-22 02:29] LABS: Anisocytosis MARKED = >30 cells HPF (0-5); Burr Cells SLIGHT = 2-5 cells HPF (0-1); CellaVision Operator ID LAB.JMM; Elliptocytes SLIGHT = 2-5 cells HPF (0-1); Macrocytosis MODERATE=16-30 cells HPF (0-5); Platelet Adequacy Comment Platelets Normal; Polychromasia SLIGHT = 2-3 cells HPF (0-2)
[2023-05-22 03:10] LABS: Actual Bicarbonate (HCO3a) 26.3 mEq/L (22-28); Analyzer IN Cardio ER; Base Excess (BEa) -1.7 mEq/L (-2.0 to +3.0); Calcium, Ionized (arterial) 1.13 mmol/L (1.12-1.30); Carboxyhemoglobin (COHb) 4.8 gm% (0.0-3.0); Hematocrit-ABG 33 % (36.0-47.0); Hemoglobin (Hb) 11.3 g/dL (12.0-16.0); O2 Tension (PaO2), arterial 67.4 mmHg (> 70.0); Potassium - ABG Lab 5.25 mmol/L (3.70-5.30); pH, Arterial 7.253 (7.35-7.45)
[2023-05-22 03:16] LABS: CO2 Tension 60.9 mmHg (35.0-45.0)
[2023-05-22 03:17] LABS: ALV-art Gradient 84.635 mmHg (0-20); Puncture Site RBA
[2023-05-22] MEDS ORDERED: Senokot S 8.6-50 MG TAB PO PRN ×2 (03:21→13:45)
[2023-05-22] MEDS ORDERED: Acetaminophen 650 MG Suppository PR PRN (03:21)
[2023-05-22] MEDS ORDERED: Ondansetron ODT 4 MG TAB PO PRN (03:21)
[2023-05-22] MEDS ORDERED: Ondansetron PF 4 MG/2 ML Vial IVP PRN (03:21)
[2023-05-22] MEDS ORDERED: Nicotine 14 MG PATCH TD PRN (03:21)
[2023-05-22] MEDS ORDERED: Acetaminophen 325 MG TAB PO PRN (03:21)
[2023-05-22] MEDS: Piperacillin/Tazobactam 3.375 GM in Sodium Chloride 0.9% 100 ML IVPB SCH ×2 (05:02→10:20)
[2023-05-22] MEDS ORDERED: Piperacillin/Tazobactam 3.375 GM VIAL ONE ×2 (05:03→10:19)
[2023-05-22] MEDS ORDERED: Sodium Chloride 0.9% 100 ML ONE ×2 (05:03→10:18)
[2023-05-22] MEDS ORDERED: Piperacillin/Tazobactam 4.5 GM in Sodium Chloride 0.9% 100 ML IVPB SCH (06:00)
[2023-05-22 06:05] LABS: Troponin I Less than 0.010 ng/mL (< 0.028)
[2023-05-22] MEDS ORDERED: Ipratropium/Albuterol 3 ML NEB ONE ×2 (07:23→11:00)
[2023-05-22 07:45] VITALS: BMI 27.8
[2023-05-22 08:01] LABS: Troponin I Less than 0.010 ng/mL (< 0.028)
[2023-05-22] MEDS: Ipratropium/Albuterol 3 ML NEB NEB SCH ×3 (08:05→12:23)
[2023-05-22] MEDS ORDERED: Ipratropium/Albuterol 3 ML NEB NEB PRN (09:19)
[2023-05-22] MEDS ORDERED: Guaifenesin DM 100-10/5 ML UDCUP PO PRN (09:22)
[2023-05-22 09:59] LABS: Hemoglobin A1c 5.2 % (4.0-6.0)
[2023-05-22 10:05] LABS: Anion Gap 11 mmol/L (10-20); BUN (Urea Nitrogen) 19 mg/dL (9.8-20.1); Calc. Creatinine Clearance 45 mL/min (70-130); Calcium 8.1 mg/dL (7.8-10.44); Carbon Dioxide 25 mmol/L (23-31); Chloride 112 mmol/L (98-107); Estimated GFR 45; Glucose 112 mg/dL (83-110); Potassium 5.2 mmol/L (3.5-5.1); Sodium 143 mmol/L (136-145)
[2023-05-22] MEDS ORDERED: methylPREDNISolone Sod Succ 40 MG VIAL ONE (10:18)
[2023-05-22] MEDS ORDERED: Magnesium 2 GM/50 ML BAG (IN WATER) ONE (10:18)
[2023-05-22] MEDS ORDERED: Famotidine 20 MG TAB ONE (10:18)
[2023-05-22] MEDS ORDERED: Doxycycline 100 MG CAP ONE (10:18)
[2023-05-22] MEDS ORDERED: Enoxaparin 40 MG (0.4 mL) SYRINGE ONE (10:19)
[2023-05-22] MEDS: Famotidine 20 MG TAB PO SCH (10:20)
[2023-05-22] MEDS: Doxycycline 100 MG CAP PO SCH (10:20)
[2023-05-22] MEDS: Enoxaparin 40 MG (0.4 mL) SYRINGE SC SCH (10:20)
[2023-05-22] MEDS: Magnesium 2 GM/50 ML(in water) 2 GM in Premix 1 BAG IVPB SCH (10:20)
[2023-05-22] MEDS: methylPREDNISolone Sod Succ 40 MG VIAL IVP SCH (10:20)
[2023-05-22] MEDS: Famotidine/PF 20 mg/2ml Vial SLOW IVP SCH (10:25)
[2023-05-22 14:02] LABS: Bacteria/HPF None Seen HPF (None Seen); Bilirubin Negative (Negative); Blood, Urine Negative (Negative); CAUTI Indications for Culture < 2yrs of age; Clarity Clear (Clear); Glucose, Urine (Dipstick) Normal (Negative); Ketone, Urine Negative (Negative); Leukocyte Negative Leu/uL (Negative); Nitrite Negative (Negative); Protein, Urine (Dipstick) Negative (Neg-Trace); RBC/HPF 0-3 HPF (0-3); Specific Gravity, Urine 1.016 (1.002-1.036); Squamous Epithelial 0-3 HPF (0-3); Urobilinogen Normal mg/dL (Less than 2); WBC/HPF 0-3 HPF (0-3)
[2023-05-22 14:03] LABS: Urine Culture Reflex Yes Yes
[2023-05-22] MEDS: guaiFENesin ER 600 MG TAB PO SCH (19:55)
[2023-05-22] MEDS: Docusate 100 MG CAP PO SCH (19:55)
[2023-05-23 06:14] LABS: #Monocytes 0.4 thou/uL (0.11-0.59); #Neutrophils 4.4 thou/uL (1.40-6.50); %Lymphocytes 9.8 % (21.0-51.0); %Monocytes 6.6 % (0.0-10.0); %Neutrophils 83.2 % (42.0-75.0); Hematocrit 33.9 % (36.0-47.0); Hemoglobin 10.4 g/dL (12.0-16.0); Mean Corpuscular HGB CONC 30.7 g/dL (32.0-36.0); Mean Corpuscular Hemoglobin 29.4 pg (27.0-31.0); Mean Corpuscular Volume 95.8 fl (78.0-98.0); Mean Platelet Volume 9.4 fL (7.4-10.4); Platelet Count 350 10x3/uL (130-400); RBC Distribution Width 19.2 % (11.5-14.5); Red Blood Cell (RBC) Count 3.54 mill/uL (4.20-5.40); White Blood Cell (WBC) Count 5.3 10x3/uL (4.8-10.8)
[2023-05-23 06:43] LABS: Anion Gap 8 mmol/L (10-20); BUN (Urea Nitrogen) 23 mg/dL (9.8-20.1); Calc. Creatinine Clearance 47 mL/min (70-130); Calcium 8.6 mg/dL (7.8-10.44); Carbon Dioxide 29 mmol/L (23-31); Chloride 109 mmol/L (98-107); Estimated GFR 48; Glucose 106 mg/dL (83-110); Magnesium 2.2 mg/dL (1.6-2.6); Potassium 5.4 mmol/L (3.5-5.1); Sodium 141 mmol/L (136-145)
[2023-05-23] MEDS: FLU VACC QS2023(65UP)/MF59C/PF 60 MCG/0.5 ML SYRINGE IM ONE (08:48)
[2023-05-23] MEDS ORDERED: hydrALAZINE 25 MG TAB PO PRN (12:14)
[2023-05-23] MEDS: Amlodipine 10 MG TAB PO SCH (12:44)
[2023-05-23] MEDS: methylPREDNISolone Sod Succ 40 MG VIAL IVP SCH (12:45)
[2023-05-23 13:44] VITALS: BP 182/87
[2023-05-23] MEDS: Carvedilol 6.25 MG TAB PO SCH (15:35)
[2023-05-23] MEDS: Furosemide 20 MG TAB PO SCH (15:35)
[2023-05-24 04:31] LABS: #Monocytes 0.3 thou/uL (0.11-0.59); #Neutrophils 6.5 thou/uL (1.40-6.50); %Lymphocytes 6.3 % (21.0-51.0); %Monocytes 3.9 % (0.0-10.0); %Neutrophils 89.4 % (42.0-75.0); Hematocrit 35.4 % (36.0-47.0); Hemoglobin 10.9 g/dL (12.0-16.0); Mean Corpuscular HGB CONC 30.8 g/dL (32.0-36.0); Mean Corpuscular Hemoglobin 29.1 pg (27.0-31.0); Mean Corpuscular Volume 94.4 fl (78.0-98.0); Platelet Count 333 10x3/uL (130-400); RBC Distribution Width 18.9 % (11.5-14.5); Red Blood Cell (RBC) Count 3.75 mill/uL (4.20-5.40); White Blood Cell (WBC) Count 7.3 10x3/uL (4.8-10.8)
[2023-05-24 04:56] LABS: Anion Gap 9 mmol/L (10-20); BUN (Urea Nitrogen) 24 mg/dL (9.8-20.1); Calc. Creatinine Clearance 51 mL/min (70-130); Carbon Dioxide 30 mmol/L (23-31); Chloride 103 mmol/L (98-107); Estimated GFR 53; Glucose 118 mg/dL (83-110); Magnesium 1.8 mg/dL (1.6-2.6); Sodium 137 mmol/L (136-145)
[2023-05-24] MEDS: Magnesium 2 GM/50 ML(in water) 2 GM in Premix 1 BAG IVPB SCH (09:08)
[2023-05-24] MEDS: Amlodipine 10 MG TAB PO SCH (09:09)
[2023-05-24] MEDS: Isosorbide Mononitrate 30 MG ER.TAB PO SCH (09:10)
[2023-05-24 12:03] VITALS: TEMP 97.3
== END 2023-05-24 16:07 | disposition home or self-care (01) | DRG 871 ==
LOC: ERS 00:22 → ERHOLD 03:03 → IMCU/EMU 13:40
PROVIDERS: ADMIT Student in an Organized Health Care Education/Training Program; ATTEND Internal Medicine
PROC: 5A09357 Assistance with Respiratory Ventilation, Less than 24 Consecutive Hours, Continuous Positive Airway Pressure (ICD-10-PCS; principal; 2023-05-22)
PROC: 4A133R1 Monitoring of Arterial Saturation, Peripheral, Percutaneous Approach (ICD-10-PCS; 2023-05-22)
PROC: 3E03329 Introduction of Other Anti-infective into Peripheral Vein, Percutaneous Approach (ICD-10-PCS; 2023-05-22)
DX: A41.50 Gram-negative sepsis, unspecified (principal); I50.33 Acute on chronic diastolic (congestive) heart failure; J96.21 Acute and chronic respiratory failure with hypoxia; J15.69 Pneumonia due to other Gram-negative bacteria; E87.20 Acidosis, unspecified; J44.1 Chronic obstructive pulmonary disease with (acute) exacerbation; J44.0 Chronic obstructive pulmonary disease with (acute) lower respiratory infection; I13.0 Hypertensive heart and chronic kidney disease with heart failure and stage 1 through stage 4 chronic kidney disease, or unspecified chronic kidney disease; R65.20 Severe sepsis without septic shock; E78.5 Hyperlipidemia, unspecified; F17.210 Nicotine dependence, cigarettes, uncomplicated; E87.5 Hyperkalemia; I48.91 Unspecified atrial fibrillation; I25.10 Atherosclerotic heart disease of native coronary artery without angina pectoris; I73.9 Peripheral vascular disease, unspecified; D53.9 Nutritional anemia, unspecified; E11.22 Type 2 diabetes mellitus with diabetic chronic kidney disease; N18.30 Chronic kidney disease, stage 3 unspecified; I34.0 Nonrheumatic mitral (valve) insufficiency; E83.42 Hypomagnesemia; Z95.1 Presence of aortocoronary bypass graft; Z98.890 Other specified postprocedural states; Z79.82 Long term (current) use of aspirin; Z79.899 Other long term (current) drug therapy; Z79.84 Long term (current) use of oral hypoglycemic drugs; Z95.5 Presence of coronary angioplasty implant and graft; Z95.0 Presence of cardiac pacemaker; I25.2 Old myocardial infarction; Z79.51 Long term (current) use of inhaled steroids
CPT/HCPCS: 36415; 36600; 71045; 80048; 80053; 81001; 82805; 83036; 83605; 83690; 83735; 83880; 84443; 84484; 85025; 87040; 87086; 93005; 94640; 94660; 96360; J1650; J2543; J2920; J3475; J3490; J7620

== ENCOUNTER 2023-06-10 04:17 | Inpatient (IN) | payer MEDICARE, OTHER ==
[2023-06-10 04:56] LABS: #Monocytes 0.5 thou/uL (0.11-0.59); #Neutrophils 3.6 thou/uL (1.40-6.50); %Basophils 0.2 % (0.0-1.0); %Eosinophils 0.4 % (0.0-10.0); %Lymphocytes 14.8 % (21.0-51.0); %Neutrophils 74.4 % (42.0-75.0); Hematocrit 32.7 % (36.0-47.0); Hemoglobin 9.8 g/dL (12.0-16.0); Mean Corpuscular Volume 96.7 fl (78.0-98.0); Mean Platelet Volume 9.5 fL (7.4-10.4); Platelet Count 270 10x3/uL (130-400); RBC Distribution Width 19.8 % (11.5-14.5); Red Blood Cell (RBC) Count 3.38 mill/uL (4.20-5.40); White Blood Cell (WBC) Count 4.8 10x3/uL (4.8-10.8)
[2023-06-10 05:08] LABS: INR-International Normal Ratio 1.3; PTT 36.7 sec (22.9-36.1); Prothrombin Time 16.6 sec (12.0-14.7)
[2023-06-10 05:09] LABS: ALT (SGPT) 8 U/L (8-55); AST (SGOT) 11 U/L (5-34); Albumin 3.3 g/dL (3.4-4.8); Alkaline Phosphatase 32 U/L (40-110); Anion Gap 10 mmol/L (10-20); BUN (Urea Nitrogen) 43 mg/dL (9.8-20.1); Bilirubin, Total 0.6 mg/dL (0.2-1.2); Calc. Creatinine Clearance 0 mL/min (70-130); Calcium 8.9 mg/dL (7.8-10.44); Carbon Dioxide 35 mmol/L (23-31); Chloride 105 mmol/L (98-107); Estimated GFR 32; Globulin 2.3 g/dL (2.4-3.5); Glucose 88 mg/dL (83-110); Potassium 4.6 mmol/L (3.5-5.1); Protein, Total 5.6 g/dL (5.8-8.1); Sodium 145 mmol/L (136-145)
[2023-06-10 05:13] LABS: Troponin I 0.043 ng/mL (< 0.028)
[2023-06-10] MEDS ORDERED: Aspirin Chewable 81 MG TAB ONE (06:12)
[2023-06-10] MEDS ORDERED: Ondansetron PF 4 MG/2 ML Vial IVP PRN (06:45)
[2023-06-10] MEDS ORDERED: Acetaminophen 325 MG TAB PO PRN (06:45)
[2023-06-10] MEDS ORDERED: Ondansetron ODT 4 MG TAB SL PRN (06:45)
[2023-06-10 09:01] LABS: Troponin I 0.049 ng/mL (< 0.028)
[2023-06-10] MEDS ORDERED: Iopamidol-370 76% 500 ML MDV (1 ML CHARGE) ONE (10:21)
[2023-06-10 10:37] VITALS: BMI 23.6
[2023-06-10] MEDS ORDERED: Non-Formulary Item 1 EACH (Albuterol Hfa (Or) 200 PUFF Inh) INH PRN (11:02)
[2023-06-10] MEDS ORDERED: Glucagon 1 MG/ML KIT IM PRN (11:06)
[2023-06-10] MEDS ORDERED: Dextrose 5% in Water 1,000 ML IV PRN (11:06)
[2023-06-10] MEDS ORDERED: HumaLOG 300 UNITS/3 ML VIAL SC PRN ×2 (11:06)
[2023-06-10] MEDS ORDERED: Dextrose 50% Abboject 50 ML SYRINGE SLOW IVP PRN (11:06)
[2023-06-10 12:33] LABS: Troponin I 0.037 ng/mL (< 0.028)
[2023-06-10 13:37] LABS: Bacteria/HPF None Seen HPF (None Seen); Bilirubin Negative (Negative); Blood, Urine Negative (Negative); CAUTI Indications for Culture Alt mental st,lethar; Clarity Clear (Clear); Glucose, Urine (Dipstick) Normal (Negative); Ketone, Urine Negative (Negative); Leukocyte 25 Leu/uL (Negative); Nitrite Negative (Negative); Protein, Urine (Dipstick) Negative (Neg-Trace); RBC/HPF 0-3 HPF (0-3); Specific Gravity, Urine 1.043 (1.002-1.036); Squamous Epithelial 0-3 HPF (0-3); Urobilinogen Normal mg/dL (Less than 2); WBC/HPF 0-3 HPF (0-3)
[2023-06-10 13:39] LABS: Urine Culture Reflex No No
[2023-06-10] MEDS: Furosemide 20 MG (2 mL) VIAL SLOW IVP SCH (15:45)
[2023-06-10] MEDS ORDERED: metFORMIN 500 MG TAB PO SCH (17:00)
[2023-06-10] MEDS: Gabapentin 300 MG CAP PO SCH (21:47)
[2023-06-10] MEDS: Carvedilol 25 MG TAB PO SCH (21:47)
[2023-06-10] MEDS: Apixaban 5 MG TAB PO SCH (21:47)
[2023-06-10] MEDS: Icosapent Ethyl 1 GM CAPSULE PO SCH (21:47)
[2023-06-10] MEDS: Rosuvastatin 10 MG TAB PO SCH (21:48)
[2023-06-11] MEDS: Lidocaine 4% Patch TD SCH (05:33)
[2023-06-11] MEDS: Methyl Salicylate/Menthol 85 GM TUBE TOP PRN (05:34)
[2023-06-11 05:47] LABS: #Monocytes 0.5 thou/uL (0.11-0.59); #Neutrophils 4.3 thou/uL (1.40-6.50); %Basophils 0.2 % (0.0-1.0); %Eosinophils 0.4 % (0.0-10.0); %Lymphocytes 10.3 % (21.0-51.0); %Monocytes 8.6 % (0.0-10.0); %Neutrophils 80.3 % (42.0-75.0); Hemoglobin 10.1 g/dL (12.0-16.0); Mean Corpuscular HGB CONC 30.6 g/dL (32.0-36.0); Mean Corpuscular Hemoglobin 29.4 pg (27.0-31.0); Mean Corpuscular Volume 96.2 fl (78.0-98.0); Mean Platelet Volume 9.5 fL (7.4-10.4); Platelet Count 270 10x3/uL (130-400); RBC Distribution Width 19.5 % (11.5-14.5); Red Blood Cell (RBC) Count 3.43 mill/uL (4.20-5.40); White Blood Cell (WBC) Count 5.4 10x3/uL (4.8-10.8)
[2023-06-11 06:04] LABS: Anion Gap 13 mmol/L (10-20); BUN (Urea Nitrogen) 31 mg/dL (9.8-20.1); Calc. Creatinine Clearance 42 mL/min (70-130); Carbon Dioxide 31 mmol/L (23-31); Chloride 105 mmol/L (98-107); Estimated GFR 52; Glucose 65 mg/dL (83-110); Potassium 4.4 mmol/L (3.5-5.1); Sodium 145 mmol/L (136-145)
[2023-06-11] MEDS ORDERED: Dextrose 5 %-0.45 % NaCl 1,000 ML IV SCH (06:45)
[2023-06-11 07:25] LABS: Magnesium 1.7 mg/dL (1.6-2.6)
[2023-06-11] MEDS: Dextrose 5 %-0.45 % NaCl 1,000 ML IV SCH (08:15)
[2023-06-11] MEDS ORDERED: Clopidogrel Bisulfate 75 MG TAB PO SCH (09:00)
[2023-06-11] MEDS ORDERED: CRANBERRY 400 MG PO SCH (09:00)
[2023-06-11] MEDS: Amiodarone 200 MG TAB PO SCH (10:20)
[2023-06-11] MEDS: Cholecalciferol 1,000 UNITS (25 MCG) TAB PO SCH (10:20)
[2023-06-11] MEDS: Magnesium Oxide 250 MG TAB PO SCH (10:21)
[2023-06-11] MEDS: Fenofibrate Nanocrystallized 145 MG TAB PO SCH (10:21)
[2023-06-11] MEDS: Colestipol 1 GM TAB PO SCH (10:22)
[2023-06-11] MEDS: Isosorbide Mononitrate 30 MG ER.TAB PO SCH (10:22)
[2023-06-11] MEDS: Clopidogrel Bisulfate 75 MG TAB PO SCH (10:22)
[2023-06-11] MEDS: Ferrous Sulfate 325 MG TAB PO SCH (10:22)
[2023-06-11] MEDS: Bisoprolol Fumarate 5 MG TAB PO SCH (10:32)
[2023-06-11] MEDS: Transdermal Patch Removal TOP SCH (17:23)
[2023-06-11] MEDS: QUEtiapine 25 MG TAB PO SCH (20:22)
[2023-06-12 04:45] LABS: #Monocytes 0.4 thou/uL (0.11-0.59); #Neutrophils 2.7 thou/uL (1.40-6.50); %Eosinophils 0.3 % (0.0-10.0); %Lymphocytes 15.2 % (21.0-51.0); %Monocytes 10.5 % (0.0-10.0); Hematocrit 32.8 % (36.0-47.0); Hemoglobin 10.1 g/dL (12.0-16.0); Mean Corpuscular HGB CONC 30.8 g/dL (32.0-36.0); Mean Corpuscular Hemoglobin 28.9 pg (27.0-31.0); Mean Platelet Volume 9.3 fL (7.4-10.4); Platelet Count 247 10x3/uL (130-400); RBC Distribution Width 18.6 % (11.5-14.5); Red Blood Cell (RBC) Count 3.49 mill/uL (4.20-5.40); White Blood Cell (WBC) Count 3.6 10x3/uL (4.8-10.8)
[2023-06-12 05:27] LABS: Anion Gap 12 mmol/L (10-20); BUN (Urea Nitrogen) 21 mg/dL (9.8-20.1); Calc. Creatinine Clearance 43 mL/min (70-130); Calcium 9.3 mg/dL (7.8-10.44); Carbon Dioxide 31 mmol/L (23-31); Chloride 101 mmol/L (98-107); Estimated GFR 52; Glucose 83 mg/dL (83-110); Sodium 140 mmol/L (136-145)
[2023-06-13 05:40] LABS: Anion Gap 17 mmol/L (10-20); BUN (Urea Nitrogen) 30 mg/dL (9.8-20.1); Calc. Creatinine Clearance 34 mL/min (70-130); Carbon Dioxide 27 mmol/L (23-31); Chloride 101 mmol/L (98-107); Estimated GFR 39; Glucose 58 mg/dL (83-110); Potassium 4.1 mmol/L (3.5-5.1); Sodium 141 mmol/L (136-145)
[2023-06-13] MEDS: Ipratropium/Albuterol 3 ML NEB NEB PRN (21:09)
[2023-06-14 05:06] LABS: #Monocytes 0.4 thou/uL (0.11-0.59); #Neutrophils 2.2 thou/uL (1.40-6.50); %Basophils 0.3 % (0.0-1.0); %Eosinophils 1.1 % (0.0-10.0); %Lymphocytes 25.4 % (21.0-51.0); %Monocytes 12.1 % (0.0-10.0); %Neutrophils 61.1 % (42.0-75.0); Hematocrit 34.5 % (36.0-47.0); Hemoglobin 10.6 g/dL (12.0-16.0); Mean Corpuscular HGB CONC 30.7 g/dL (32.0-36.0); Mean Corpuscular Hemoglobin 29.1 pg (27.0-31.0); Mean Corpuscular Volume 94.8 fl (78.0-98.0); Mean Platelet Volume 9.4 fL (7.4-10.4); Platelet Count 229 10x3/uL (130-400); RBC Distribution Width 18.3 % (11.5-14.5); Red Blood Cell (RBC) Count 3.64 mill/uL (4.20-5.40); White Blood Cell (WBC) Count 3.5 10x3/uL (4.8-10.8)
[2023-06-14 05:28] LABS: Anion Gap 14 mmol/L (10-20); BUN (Urea Nitrogen) 34 mg/dL (9.8-20.1); Calc. Creatinine Clearance 36 mL/min (70-130); Carbon Dioxide 32 mmol/L (23-31); Chloride 100 mmol/L (98-107); Estimated GFR 42; Glucose 57 mg/dL (83-110); Potassium 3.8 mmol/L (3.5-5.1); Sodium 142 mmol/L (136-145)
[2023-06-14 11:59] VITALS: BP 109/67; TEMP 97.6
== END 2023-06-14 16:25 | DRG 291 ==
LOC: ERS 04:17 → 2SE 06:23
PROVIDERS: ADMIT Student in an Organized Health Care Education/Training Program; ATTEND Hospitalist
DX: I13.0 Hypertensive heart and chronic kidney disease with heart failure and stage 1 through stage 4 chronic kidney disease, or unspecified chronic kidney disease (principal); G93.41 Metabolic encephalopathy; I50.33 Acute on chronic diastolic (congestive) heart failure; J96.10 Chronic respiratory failure, unspecified whether with hypoxia or hypercapnia; I25.10 Atherosclerotic heart disease of native coronary artery without angina pectoris; E11.22 Type 2 diabetes mellitus with diabetic chronic kidney disease; M06.9 Rheumatoid arthritis, unspecified; E78.5 Hyperlipidemia, unspecified; I48.0 Paroxysmal atrial fibrillation; N18.30 Chronic kidney disease, stage 3 unspecified; R77.8 Other specified abnormalities of plasma proteins; J44.9 Chronic obstructive pulmonary disease, unspecified; R13.12 Dysphagia, oropharyngeal phase; I25.2 Old myocardial infarction; Z95.0 Presence of cardiac pacemaker; Z79.01 Long term (current) use of anticoagulants; Z79.899 Other long term (current) drug therapy; Z79.02 Long term (current) use of antithrombotics/antiplatelets; Z79.84 Long term (current) use of oral hypoglycemic drugs; Z79.51 Long term (current) use of inhaled steroids; Z95.1 Presence of aortocoronary bypass graft; Z95.9 Presence of cardiac and vascular implant and graft, unspecified
CPT/HCPCS: 36415; 36416; 70450; 70496; 70498; 70551; 71045; 74230; 80048; 80053; 81001; 83735; 83880; 84484; 85025; 85610; 85730; 93005; 94640; J1940; J7042; J7620; Q9967

== ENCOUNTER 2023-07-31 11:04 | Observation (INO) | payer MEDICARE, OTHER ==
[2023-07-31 11:39] LABS: #Basophils Less than 0.03 10x3/uL (0.0-0.2); %Basophils 0.4 % (0.0-1.0); %Eosinophils 3.5 % (0.0-10.0); %Lymphocytes 26.9 % (21.0-51.0); %Monocytes 9.8 % (0.0-10.0); Hematocrit 25.7 % (36.0-47.0); Hemoglobin 7.4 g/dL (12.0-16.0); Mean Corpuscular HGB CONC 28.8 g/dL (32.0-36.0); Mean Corpuscular Hemoglobin 28.5 pg (27.0-31.0); Mean Corpuscular Volume 98.8 fL (78.0-98.0); Mean Platelet Volume 9.4 fL (7.4-10.4); Platelet Count 454 10x3/uL (130-400); RBC Distribution Width 17.2 % (11.5-14.5)
[2023-07-31 11:46] LABS: Anion Gap 12 mmol/L (10-20)
[2023-07-31] MEDS ORDERED: Pantoprazole 40 MG VIAL ONE (11:47)
[2023-07-31 11:50] LABS: ALT (SGPT) 7 U/L (8-55); AST (SGOT) 23 U/L (5-34); Albumin 2.6 g/dL (3.4-4.8); Alkaline Phosphatase 34 U/L (40-110); BUN (Urea Nitrogen) 40 mg/dL (9.8-20.1); Bilirubin, Total 0.5 mg/dL (0.2-1.2); Calc. Creatinine Clearance 0 mL/min (70-130); Calcium 9.5 mg/dL (7.8-10.44); Carbon Dioxide 36 mmol/L (23-31); Chloride 103 mmol/L (98-107); Estimated GFR 28; Glucose 103 mg/dL (83-110); Potassium 4.9 mmol/L (3.5-5.1); Protein, Total 6.6 g/dL (5.8-8.1); Sodium 146 mmol/L (136-145)
[2023-07-31 11:57] LABS: Platelet Adequacy Comment Platelets Normal; RBC Morphology Within Normal Limits; Troponin I 0.012 ng/mL (< 0.028)
[2023-07-31 14:58] LABS: Bacteria/HPF None Seen HPF (None Seen); Bilirubin Negative (Negative); Blood, Urine Negative (Negative); CAUTI Indications for Culture Dysuria,urgency,freq; Clarity Clear (Clear); Glucose, Urine (Dipstick) Normal (Negative); Ketone, Urine Negative (Negative); Leukocyte Negative Leu/uL (Negative); Nitrite Negative (Negative); Protein, Urine (Dipstick) Negative (Neg-Trace); RBC/HPF 0-3 HPF (0-3); Squamous Epithelial None Seen HPF (0-3); Urobilinogen Normal mg/dL (Less than 2); WBC/HPF 0-3 HPF (0-3)
[2023-07-31 15:05] LABS: Urine Culture Reflex No No
[2023-07-31] MEDS ORDERED: Calcium Carbonate 500 MG ChewTAB PO PRN (17:03)
[2023-07-31] MEDS ORDERED: Ondansetron PF 4 MG/2 ML Vial IVP PRN (17:03)
[2023-07-31] MEDS ORDERED: Senokot S 8.6-50 MG TAB PO PRN (17:03)
[2023-07-31] MEDS ORDERED: Acetaminophen 325 MG TAB PO PRN (17:03)
[2023-07-31 17:18] LABS: Hematocrit 24.6 % (36.0-47.0); Hemoglobin 7.5 g/dL (12.0-16.0)
[2023-07-31 17:48] LABS: Iron Binding Capacity, Total 463 mcg/dL (265-497)
[2023-07-31 17:51] LABS: Iron 46 ug/dL (50-170)
[2023-07-31 19:21] VITALS: BMI 23.7
[2023-07-31] MEDS: Carvedilol 6.25 MG TAB PO SCH (19:29)
[2023-07-31] MEDS: Lactated Ringer's 1,000 ML IV SCH (20:16)
[2023-07-31] MEDS: Gabapentin 300 MG CAP PO SCH (20:22)
[2023-07-31] MEDS: QUEtiapine 25 MG TAB PO SCH (20:22)
[2023-07-31] MEDS: Rosuvastatin 10 MG TAB PO SCH (20:22)
[2023-07-31 23:49] LABS: Ferritin 112.7 ng/mL (10-291)
[2023-08-01] MEDS: Amiodarone 200 MG TAB PO SCH (08:32)
[2023-08-01] MEDS: Isosorbide Mononitrate 30 MG ER.TAB PO SCH (08:32)
[2023-08-01] MEDS: DULoxetine 30 MG CAP PO SCH (08:32)
[2023-08-01] MEDS: Pantoprazole 40 MG VIAL IVP SCH (08:33)
[2023-08-01 09:07] LABS: #Basophils Less than 0.03 10x3/uL (0.0-0.2); %Basophils 0.3 % (0.0-1.0); %Eosinophils 1.8 % (0.0-10.0); %Lymphocytes 22.9 % (21.0-51.0); %Monocytes 10.9 % (0.0-10.0); %Neutrophils 63.8 % (42.0-75.0); Hematocrit 24.8 % (36.0-47.0); Hemoglobin 7.6 g/dL (12.0-16.0); Mean Corpuscular HGB CONC 30.6 g/dL (32.0-36.0); Mean Corpuscular Hemoglobin 27.7 pg (27.0-31.0); Mean Corpuscular Volume 90.5 fL (78.0-98.0); Mean Platelet Volume 9.7 fL (7.4-10.4); Platelet Count 407 10x3/uL (130-400); RBC Distribution Width 18.7 % (11.5-14.5); Red Blood Cell (RBC) Count 2.74 mill/uL (4.20-5.40)
[2023-08-01 09:45] LABS: Anion Gap 8 mmol/L (10-20); Globulin 3.4 g/dL (2.4-3.5)
[2023-08-01 09:49] LABS: ALT (SGPT) 5 U/L (8-55); AST (SGOT) 14 U/L (5-34); Albumin 2.3 g/dL (3.4-4.8); Alkaline Phosphatase 34 U/L (40-110); BUN (Urea Nitrogen) 39 mg/dL (9.8-20.1); Bilirubin, Total 0.5 mg/dL (0.2-1.2); Calc. Creatinine Clearance 27 mL/min (70-130); Calcium 8.9 mg/dL (7.8-10.44); Carbon Dioxide 35 mmol/L (23-31); Chloride 105 mmol/L (98-107); Estimated GFR 30; Glucose 70 mg/dL (83-110); Magnesium 2.1 mg/dL (1.6-2.6); Potassium 4.3 mmol/L (3.5-5.1); Protein, Total 5.7 g/dL (5.8-8.1); Sodium 144 mmol/L (136-145)
[2023-08-01] MEDS ORDERED: Lidocaine 1% PF 5 ML VIAL ONE (13:31)
[2023-08-01] MEDS ORDERED: PROPOFOL 20 ML ONE (13:31)
[2023-08-01 14:19] VITALS: BMI 23.7
[2023-08-01] MEDS: Apixaban 2.5 MG TAB PO SCH (21:20)
[2023-08-02] MEDS: Ferrous Sulfate 325 MG TAB PO SCH (09:03)
[2023-08-02] MEDS: Pantoprazole DR 40 MG TAB PO SCH (09:04)
[2023-08-02] MEDS: Cyanocobalamin (Vitamin B-12) 1,000 MCG TAB PO SCH (09:04)
[2023-08-02 09:06] VITALS: BP 144/53; TEMP 98.3
[2023-08-02] MEDS: Cyanocobalamin 1000 MCG/ML VIAL IM SCH (11:02)
== END 2023-08-02 11:39 | disposition home or self-care (01) ==
LOC: ERS 11:04 → SUATTDRO 11:04 → T4-A 17:20 → OBSVTOIN 08-01 14:58 → INTOOBSV 08-01 14:58
PROVIDERS: ADMIT Internal Medicine; ATTEND Family Medicine
PROC: 30233N1 Transfusion of Nonautologous Red Blood Cells into Peripheral Vein, Percutaneous Approach (ICD-10-PCS; 2023-07-31)
PROC: 0DJ08ZZ Inspection of Upper Intestinal Tract, Via Natural or Artificial Opening Endoscopic (ICD-10-PCS; principal; 2023-08-01)
DX: D50.9 Iron deficiency anemia, unspecified (principal); J96.11 Chronic respiratory failure with hypoxia; E87.0 Hyperosmolality and hypernatremia; N17.9 Acute kidney failure, unspecified; I13.0 Hypertensive heart and chronic kidney disease with heart failure and stage 1 through stage 4 chronic kidney disease, or unspecified chronic kidney disease; N18.30 Chronic kidney disease, stage 3 unspecified; I50.32 Chronic diastolic (congestive) heart failure; I48.91 Unspecified atrial fibrillation; E11.22 Type 2 diabetes mellitus with diabetic chronic kidney disease; I25.10 Atherosclerotic heart disease of native coronary artery without angina pectoris; J44.9 Chronic obstructive pulmonary disease, unspecified; F03.90 Unspecified dementia, unspecified severity, without behavioral disturbance, psychotic disturbance, mood disturbance, and anxiety; I73.9 Peripheral vascular disease, unspecified; I48.0 Paroxysmal atrial fibrillation; E78.5 Hyperlipidemia, unspecified; E66.01 Morbid (severe) obesity due to excess calories; Z79.01 Long term (current) use of anticoagulants; Z95.1 Presence of aortocoronary bypass graft; Z79.899 Other long term (current) drug therapy; Z95.5 Presence of coronary angioplasty implant and graft; Z99.81 Dependence on supplemental oxygen; Z79.02 Long term (current) use of antithrombotics/antiplatelets; Z79.51 Long term (current) use of inhaled steroids; F17.210 Nicotine dependence, cigarettes, uncomplicated; D64.9 Anemia, unspecified; E11.9 Type 2 diabetes mellitus without complications; J18.9 Pneumonia, unspecified organism; I10 Essential (primary) hypertension
CPT/HCPCS: 36430; 43235; 51701; 70450; 71045; 73564 ×2; 80053 ×3; 81001; 82607; 82728; 83540; 83550; 83735 ×2; 84484 ×2; 85014; 85018; 85025 ×3; 85046; 86850; 86900; 86901; 86920; 93005 ×2; 96372; 96374; 96376; 99285 ×2; G0378 ×3; P9016; 36415; 82274; C9113; J2704; J3420; J7120

== ENCOUNTER 2023-08-12 08:27 | Emergency (ER) | payer MEDICARE, OTHER ==
[2023-08-12] MEDS ORDERED: Acetaminophen 325 MG TAB ONE (09:56)
[2023-08-12 10:38] LABS: #Basophils Less than 0.03 10x3/uL (0.0-0.2); %Basophils 0.2 % (0.0-1.0); %Eosinophils 3.6 % (0.0-10.0); %Lymphocytes 27.6 % (21.0-51.0); %Neutrophils 55.4 % (42.0-75.0); Hematocrit 23.7 % (36.0-47.0); Hemoglobin 7.3 g/dL (12.0-16.0); Mean Corpuscular HGB CONC 30.8 g/dL (32.0-36.0); Mean Corpuscular Hemoglobin 28.1 pg (27.0-31.0); Mean Corpuscular Volume 91.2 fL (78.0-98.0); Mean Platelet Volume 9.6 fL (7.4-10.4); Platelet Count 453 10x3/uL (130-400); RBC Distribution Width 15.4 % (11.5-14.5)
[2023-08-12 10:49] LABS: Globulin 4.2 g/dL (2.4-3.5)
[2023-08-12 10:52] LABS: INR-International Normal Ratio 1.3; PTT 35.9 sec (22.9-36.1); Prothrombin Time 16.4 sec (12.0-14.7)
[2023-08-12 10:53] LABS: ALT (SGPT) 9 U/L (8-55); AST (SGOT) 21 U/L (5-34); Albumin 2.4 g/dL (3.4-4.8); Alkaline Phosphatase 37 U/L (40-110); Anion Gap 16 mmol/L (10-20); BUN (Urea Nitrogen) 31 mg/dL (9.8-20.1); Bilirubin, Total 0.5 mg/dL (0.2-1.2); Calc. Creatinine Clearance 0 mL/min (70-130); Calcium 9.2 mg/dL (7.8-10.44); Carbon Dioxide 28 mmol/L (23-31); Chloride 101 mmol/L (98-107); D-Dimer Test 2.09 mcg/mL (0.27-0.43); Estimated GFR 40; Glucose 122 mg/dL (83-110); Potassium 4.5 mmol/L (3.5-5.1); Protein, Total 6.6 g/dL (5.8-8.1); Sodium 140 mmol/L (136-145)
== END 2023-08-12 19:30 ==
LOC: ERS 08:27
DX: S70.11XA Contusion of right thigh, initial encounter (principal); I73.9 Peripheral vascular disease, unspecified; D64.9 Anemia, unspecified; R79.1 Abnormal coagulation profile; E11.9 Type 2 diabetes mellitus without complications; E78.00 Pure hypercholesterolemia, unspecified; J44.9 Chronic obstructive pulmonary disease, unspecified; Z87.891 Personal history of nicotine dependence; Z95.0 Presence of cardiac pacemaker; Z79.899 Other long term (current) drug therapy; Z79.01 Long term (current) use of anticoagulants; Z79.51 Long term (current) use of inhaled steroids; Z79.4 Long term (current) use of insulin; W19.XXXA Unspecified fall, initial encounter
CPT/HCPCS: 70450; 72125; 72170; 80053; 85025; 85379; 85610; 85730

== ENCOUNTER 2023-09-08 13:05 | Emergency (ER) | payer MEDICARE, OTHER ==
[2023-09-08 14:01] LABS: #Basophils Less than 0.03 10x3/uL (0.0-0.2); %Basophils 0.4 % (0.0-1.0); %Eosinophils 4.1 % (0.0-10.0); %Lymphocytes 23.4 % (21.0-51.0); %Monocytes 13.4 % (0.0-10.0); %Neutrophils 58.3 % (42.0-75.0); Hematocrit 31.6 % (36.0-47.0); Hemoglobin 9.4 g/dL (12.0-16.0); Mean Corpuscular HGB CONC 29.7 g/dL (32.0-36.0); Mean Corpuscular Hemoglobin 27.2 pg (27.0-31.0); Mean Corpuscular Volume 91.6 fL (78.0-98.0); Mean Platelet Volume 9.6 fL (7.4-10.4); Platelet Count 394 10x3/uL (130-400); RBC Distribution Width 16.4 % (11.5-14.5); Red Blood Cell (RBC) Count 3.45 mill/uL (4.20-5.40)
[2023-09-08 14:18] LABS: Anion Gap 14 mmol/L (10-20); BUN (Urea Nitrogen) 37 mg/dL (9.8-20.1); Calc. Creatinine Clearance 0 mL/min (70-130); Calcium 8.8 mg/dL (7.8-10.44); Carbon Dioxide 22 mmol/L (23-31); Chloride 112 mmol/L (98-107); Estimated GFR 26; Glucose 113 mg/dL (83-110); Potassium 4.5 mmol/L (3.5-5.1); Sodium 143 mmol/L (136-145)
== END 2023-09-08 17:14 | disposition home or self-care (01) ==
LOC: ERS 13:05
DX: T65.91XA Toxic effect of unspecified substance, accidental (unintentional), initial encounter (principal); I25.10 Atherosclerotic heart disease of native coronary artery without angina pectoris; I48.91 Unspecified atrial fibrillation; E11.9 Type 2 diabetes mellitus without complications; I10 Essential (primary) hypertension; J44.9 Chronic obstructive pulmonary disease, unspecified; Z95.0 Presence of cardiac pacemaker; Z87.891 Personal history of nicotine dependence
CPT/HCPCS: 36416; 80048; 85025; 93005

== ENCOUNTER 2024-03-11 10:54 | Outpatient (CLI) | payer MEDICARE, OTHER | END 2024-03-11 10:55 | disposition home or self-care (01) | LOC: BICCT 10:54 | PROVIDERS: ATTEND Internal Medicine | DX: Z12.2 Encounter for screening for malignant neoplasm of respiratory organs (principal); D50.0 Iron deficiency anemia secondary to blood loss (chronic); Z79.899 Other long term (current) drug therapy; R91.8 Other nonspecific abnormal finding of lung field; J43.9 Emphysema, unspecified | CPT/HCPCS: 71250 ==

== ENCOUNTER 2024-03-25 11:00 | Outpatient (CLI) | payer MEDICARE, OTHER | END 2024-03-25 11:01 | disposition home or self-care (01) | LOC: PET 11:00 | PROVIDERS: ATTEND Internal Medicine | DX: C34.31 Malignant neoplasm of lower lobe, right bronchus or lung (principal); D50.0 Iron deficiency anemia secondary to blood loss (chronic); Z79.899 Other long term (current) drug therapy | CPT/HCPCS: 78815; A9552 ==

== ENCOUNTER 2024-04-01 10:52 | Day surgery (SDC) | payer MEDICARE, OTHER ==
[2024-03-26 10:52] VITALS: BMI 24.3
[2024-04-01] MEDS ORDERED: Ipratropium/Albuterol 3 ML NEB ONE ×2 (11:21→14:08)
[2024-04-01] MEDS ORDERED: Lidocaine 4% PF 5 ML AMP ONE (11:21)
[2024-04-01] MEDS ORDERED: Lidocaine 1% PF 5 ML VIAL ONE (12:33)
[2024-04-01] MEDS ORDERED: Rocuronium Bromide 10 MG/ML (10ML VIAL) ONE (12:33)
[2024-04-01] MEDS ORDERED: Ondansetron PF 4 MG/2 ML Vial ONE (12:33)
[2024-04-01] MEDS ORDERED: Dexamethasone 20 MG/5 ML VIAL ONE (12:33)
[2024-04-01] MEDS ORDERED: GLYCOPYRROLATE/PF 0.2 MG/ML VIAL ONE (12:33)
[2024-04-01] MEDS ORDERED: fentaNYL PF 100 MCG/2 ML SYRINGE ONE (12:33)
[2024-04-01] MEDS ORDERED: PHENYLEPHRINE-NS 100 MCG/ML 10 ML SYRINGE ONE ×2 (12:33→13:08)
[2024-04-01] MEDS ORDERED: PROPOFOL 20 ML ONE (12:33)
[2024-04-01] MEDS ORDERED: Lidocaine 2% 6 ML (Jelly) SYR ONE (12:34)
[2024-04-01] MEDS ORDERED: SUGAMMADEX SODIUM 200 MG/2 ML VIAL ONE (13:29)
== END 2024-04-01 15:39 | disposition home or self-care (01) ==
LOC: SDC 10:52
PROVIDERS: ATTEND Internal Medicine
PROC: 0B9F8ZX Drainage of Right Lower Lung Lobe, Via Natural or Artificial Opening Endoscopic, Diagnostic (ICD-10-PCS; principal; 2024-04-01)
PROC: 0BD68ZX Extraction of Right Lower Lobe Bronchus, Via Natural or Artificial Opening Endoscopic, Diagnostic (ICD-10-PCS; 2024-04-01)
DX: C34.31 Malignant neoplasm of lower lobe, right bronchus or lung (principal); R59.0 Localized enlarged lymph nodes; J44.9 Chronic obstructive pulmonary disease, unspecified; M06.9 Rheumatoid arthritis, unspecified; I25.10 Atherosclerotic heart disease of native coronary artery without angina pectoris; J44.1 Chronic obstructive pulmonary disease with (acute) exacerbation; J18.9 Pneumonia, unspecified organism; Z99.81 Dependence on supplemental oxygen; Z87.891 Personal history of nicotine dependence; I48.91 Unspecified atrial fibrillation; I48.0 Paroxysmal atrial fibrillation; N18.9 Chronic kidney disease, unspecified; E11.22 Type 2 diabetes mellitus with diabetic chronic kidney disease; Z79.01 Long term (current) use of anticoagulants; Z98.890 Other specified postprocedural states; Z79.899 Other long term (current) drug therapy
CPT/HCPCS: 31623; 31624; 31628; 31653; J1100; J2405; J2704; J3490; 88112; 88173; 88305; 88341; 88342; J7620

== ENCOUNTER 2024-04-08 19:44 | Emergency (ER) | payer MEDICARE, OTHER ==
[2024-04-08] MEDS ORDERED: Labetalol HCl 100 MG/20 ML VIAL ONE (20:34)
[2024-04-08 20:53] LABS: #Basophils 0.03 10x3/uL (0.0-0.2); %Basophils 0.4 % (0.0-1.0); %Eosinophils 3.1 % (0.0-10.0); %Lymphocytes 20.1 % (21.0-51.0); %Neutrophils 66.3 % (42.0-75.0); Hematocrit 38.2 % (36.0-47.0); Mean Corpuscular HGB CONC 31.4 g/dL (32.0-36.0); Mean Corpuscular Hemoglobin 29.3 pg (27.0-31.0); Mean Corpuscular Volume 93.4 fL (78.0-98.0); Platelet Count 304 10x3/uL (130-400); RBC Distribution Width 14.7 % (11.5-14.5); Red Blood Cell (RBC) Count 4.09 mill/uL (4.20-5.40)
[2024-04-08] MEDS ORDERED: Lidocaine 1% w/Epinephrine 1:100K 20 ML VIAL ONE (20:59)
[2024-04-08 21:11] LABS: PTT 35.7 sec (22.9-36.1); Prothrombin Time 13.4 sec (12.0-14.7)
[2024-04-08] MEDS ORDERED: Silver Nitrate Application 1 EACH ONE (21:37)
[2024-04-08] MEDS ORDERED: Oxymetazoline HCl 0.05% (30 ML BOT) ONE (21:37)
== END 2024-04-08 23:09 | disposition home or self-care (01) ==
LOC: ERS 19:44
DX: R04.0 Epistaxis (principal); E11.9 Type 2 diabetes mellitus without complications; J44.9 Chronic obstructive pulmonary disease, unspecified; Z87.891 Personal history of nicotine dependence
CPT/HCPCS: 30901; 36415; 85025; 85610; 85730; 96374

== ENCOUNTER 2024-04-09 01:18 | Emergency (ER) | payer MEDICARE, OTHER ==
[2024-04-09] MEDS ORDERED: Tranexamic Acid 1,000 MG/10 ML VIAL ONE (01:52)
[2024-04-09] MEDS ORDERED: Oxymetazoline HCl 0.05% (30 ML BOT) ONE (01:57)
[2024-04-09 02:12] LABS: #Basophils 0.03 10x3/uL (0.0-0.2); %Basophils 0.4 % (0.0-1.0); %Eosinophils 2.4 % (0.0-10.0); %Lymphocytes 18.7 % (21.0-51.0); %Neutrophils 69.2 % (42.0-75.0); Hematocrit 40.3 % (36.0-47.0); Hemoglobin 12.6 g/dL (12.0-16.0); Mean Corpuscular HGB CONC 31.3 g/dL (32.0-36.0); Mean Corpuscular Hemoglobin 29.4 pg (27.0-31.0); Mean Corpuscular Volume 94.2 fL (78.0-98.0); Mean Platelet Volume 9.2 fL (7.4-10.4); Platelet Count 329 10x3/uL (130-400); RBC Distribution Width 14.7 % (11.5-14.5); Red Blood Cell (RBC) Count 4.28 mill/uL (4.20-5.40)
[2024-04-09 02:26] LABS: ALT (SGPT) 9 U/L (8-55); AST (SGOT) 13 U/L (5-34); Albumin 3.2 g/dL (3.4-4.8); Alkaline Phosphatase 91 U/L (40-110); Anion Gap 14 mmol/L (10-20); BUN (Urea Nitrogen) 24 mg/dL (9.8-20.1); Bilirubin, Total 0.3 mg/dL (0.2-1.2); Calc. Creatinine Clearance 0 mL/min (70-130); Calcium 10.1 mg/dL (7.8-10.44); Carbon Dioxide 27 mmol/L (23-31); Chloride 105 mmol/L (98-107); Estimated GFR 66; Globulin 4.5 g/dL (2.4-3.5); Glucose 110 mg/dL (83-110); Potassium 4.5 mmol/L (3.5-5.1); Protein, Total 7.7 g/dL (5.8-8.1); Sodium 141 mmol/L (136-145)
[2024-04-09] MEDS ORDERED: cloNIDine 0.1 MG TAB ONE (03:08)
== END 2024-04-09 04:00 | disposition home or self-care (01) ==
LOC: ERS 01:18
DX: R04.0 Epistaxis (principal); I25.10 Atherosclerotic heart disease of native coronary artery without angina pectoris; E11.9 Type 2 diabetes mellitus without complications; I10 Essential (primary) hypertension; Z87.891 Personal history of nicotine dependence; Z79.82 Long term (current) use of aspirin; Z79.02 Long term (current) use of antithrombotics/antiplatelets; Z79.01 Long term (current) use of anticoagulants
CPT/HCPCS: 80053; 85025; 96374

== ENCOUNTER 2024-04-15 13:18 | Outpatient (CLI) | payer MEDICARE, OTHER | END 2024-04-15 13:19 | disposition home or self-care (01) | LOC: MRI 13:18 | PROVIDERS: ATTEND Internal Medicine | DX: C34.31 Malignant neoplasm of lower lobe, right bronchus or lung (principal); D50.0 Iron deficiency anemia secondary to blood loss (chronic); R90.82 White matter disease, unspecified; I73.9 Peripheral vascular disease, unspecified; H74.91 Unspecified disorder of right middle ear and mastoid; Z79.899 Other long term (current) drug therapy | CPT/HCPCS: 70553; 71046; 76376 ==

== ENCOUNTER 2024-04-19 13:53 | Outpatient (CLI) | payer MEDICARE, OTHER | END 2024-04-19 13:54 | disposition home or self-care (01) | LOC: BICMAMMO 13:53 | PROVIDERS: ATTEND Internal Medicine | DX: N63.25 Unspecified lump in the left breast, overlapping quadrants (principal); C34.31 Malignant neoplasm of lower lobe, right bronchus or lung; D50.0 Iron deficiency anemia secondary to blood loss (chronic); Z79.899 Other long term (current) drug therapy | CPT/HCPCS: 76642; 77066; G0279 ==

== ENCOUNTER 2024-04-23 06:41 | Inpatient (IN) | payer MEDICARE, OTHER ==
[2024-04-23 07:34] LABS: #Basophils Less than 0.03 10x3/uL (0.0-0.2); %Basophils 0.3 % (0.0-1.0); %Eosinophils 1.8 % (0.0-10.0); %Lymphocytes 18.8 % (21.0-51.0); %Monocytes 8.3 % (0.0-10.0); Hematocrit 31.9 % (36.0-47.0); Hemoglobin 9.6 g/dL (12.0-16.0); Mean Corpuscular HGB CONC 30.1 g/dL (32.0-36.0); Mean Corpuscular Hemoglobin 29.6 pg (27.0-31.0); Mean Corpuscular Volume 98.5 fL (78.0-98.0); Platelet Count 311 10x3/uL (130-400); Red Blood Cell (RBC) Count 3.24 mill/uL (4.20-5.40)
[2024-04-23 07:36] LABS: Troponin I 0.273 ng/mL (< 0.028)
[2024-04-23 08:02] LABS: ALT (SGPT) 6 U/L (8-55); AST (SGOT) 12 U/L (5-34); Albumin 2.8 g/dL (3.4-4.8); Alkaline Phosphatase 81 U/L (40-110); Anion Gap 11 mmol/L (10-20); BUN (Urea Nitrogen) 25 mg/dL (9.8-20.1); Bilirubin, Total 0.1 mg/dL (0.2-1.2); Calc. Creatinine Clearance 0 mL/min (70-130); Calcium 8.7 mg/dL (7.8-10.44); Carbon Dioxide 26 mmol/L (23-31); Chloride 108 mmol/L (98-107); Estimated GFR 38; Globulin 3.7 g/dL (2.4-3.5); Glucose 94 mg/dL (83-110); Potassium 5.4 mmol/L (3.5-5.1); Protein, Total 6.5 g/dL (5.8-8.1); Sodium 140 mmol/L (136-145)
[2024-04-23] MEDS ORDERED: Furosemide 20 MG (2 mL) VIAL ONE (09:01)
[2024-04-23] MEDS ORDERED: Ondansetron ODT 4 MG TAB PO PRN (09:30)
[2024-04-23] MEDS ORDERED: Ondansetron PF 4 MG/2 ML Vial IVP PRN (09:30)
[2024-04-23] MEDS ORDERED: Senokot S 8.6-50 MG TAB PO PRN (09:30)
[2024-04-23 10:48] LABS: Troponin I 0.397 ng/mL (< 0.028)
[2024-04-23 11:20] VITALS: BMI 24.7
[2024-04-23] MEDS: Aspirin 81 mg Enteric Coated Tablet PO SCH (11:45)
[2024-04-23] MEDS: Carvedilol 6.25 MG TAB PO SCH ×2 (11:45→16:02)
[2024-04-23] MEDS: Apixaban 5 MG TAB PO SCH ×2 (11:45→21:12)
[2024-04-23 14:26] LABS: Bacteria/HPF None Seen HPF (None Seen); Bilirubin Negative (Negative); Blood, Urine Negative (Negative); CAUTI Indications for Culture Alt mental st,lethar; Clarity Clear (Clear); Glucose, Urine (Dipstick) Normal (Negative); Ketone, Urine Negative (Negative); Leukocyte 25 Leu/uL (Negative); Nitrite Negative (Negative); Protein, Urine (Dipstick) Negative (Neg-Trace); RBC/HPF 0-3 HPF (0-3); Specific Gravity, Urine 1.012 (1.002-1.036); Squamous Epithelial 0-3 HPF (0-3); Urobilinogen Normal mg/dL (Less than 2); WBC/HPF 0-3 HPF (0-3)
[2024-04-23 14:28] LABS: Urine Culture Reflex No No
[2024-04-23] MEDS: Amiodarone 200 MG TAB PO SCH (14:51)
[2024-04-23] MEDS: Acetaminophen 325 MG TAB PO PRN (14:53)
[2024-04-23] MEDS ORDERED: Iopamidol-370 76% 500 ML MDV (1 ML CHARGE) ONE (15:13)
[2024-04-23 15:33] LABS: Actual Bicarbonate (HCO3v) 27.2 mEq/L (22-28); Base Excess -1.1 mEq/L (-2.0 to +3.0); Calcium, Ionized (venous) 1.18 mmol/L (1.16-1.32); Chloride (VBG) 104 mmol/L (98-106); Hematocrit-VBG 30 % (36.0-47.0); Hemoglobin (Hb) 10.3 g/dL (11.7-16.1); Sodium 139 mmol/L (133-146); pH (venous) 7.235 (7.32-7.43)
[2024-04-23] MEDS: traMADol HCl 50 MG TAB PO PRN (16:01)
[2024-04-23 16:09] LABS: Critical Call Chem Troponin I RESULT DECREASING; Troponin I 0.371 ng/mL (< 0.028)
[2024-04-23 16:35] LABS: Actual Bicarbonate (HCO3a) 27.3 mEq/L (22-28); Base Excess (BEa) 1.8 mEq/L (-2.0 to +3.0); CO2 Tension 47.4 mmHg (35.0-45.0); Calcium, Ionized (arterial) 1.18 mmol/L (1.12-1.30); Carboxyhemoglobin (COHb) 1.4 gm% (0.0-3.0); Hematocrit-ABG 29 % (36.0-47.0); Hemoglobin (Hb) 9.8 g/dL (12.0-16.0); pH, Arterial 7.379 (7.35-7.45)
[2024-04-23 16:40] LABS: Puncture Site Right Brachial art
[2024-04-23] MEDS: methylPREDNISolone Sod Succ 40 MG VIAL IVP SCH (18:30)
[2024-04-23] MEDS: Ipratropium/Albuterol 3 ML NEB NEB SCH (19:03)
[2024-04-23] MEDS: Rosuvastatin 10 MG TAB PO SCH (21:12)
[2024-04-24 04:33] LABS: #Basophils Less than 0.03 10x3/uL (0.0-0.2); #Eosinophils Less than 0.03 10x3/uL (0.0-0.7); %Basophils 0.2 % (0.0-1.0); %Lymphocytes 10.2 % (21.0-51.0); %Monocytes 0.9 % (0.0-10.0); %Neutrophils 88.3 % (42.0-75.0); Hematocrit 30.1 % (36.0-47.0); Hemoglobin 9.2 g/dL (12.0-16.0); Mean Corpuscular HGB CONC 30.6 g/dL (32.0-36.0); Mean Corpuscular Hemoglobin 29.2 pg (27.0-31.0); Mean Corpuscular Volume 95.6 fL (78.0-98.0); Mean Platelet Volume 9.5 fL (7.4-10.4); Platelet Count 286 10x3/uL (130-400); RBC Distribution Width 14.8 % (11.5-14.5); Red Blood Cell (RBC) Count 3.15 mill/uL (4.20-5.40)
[2024-04-24 04:58] LABS: Anion Gap 11 mmol/L (10-20); BUN (Urea Nitrogen) 24 mg/dL (9.8-20.1); Calc. Creatinine Clearance 38 mL/min (70-130); Calcium 8.9 mg/dL (7.8-10.44); Carbon Dioxide 25 mmol/L (23-31); Chloride 106 mmol/L (98-107); Estimated GFR 50; Glucose 128 mg/dL (83-110); Potassium 5.2 mmol/L (3.5-5.1); Sodium 137 mmol/L (136-145)
[2024-04-24] MEDS: Amiodarone 200 MG TAB PO SCH (09:29)
[2024-04-24] MEDS: Aspirin 81 mg Enteric Coated Tablet PO SCH (09:29)
[2024-04-24] MEDS: methylPREDNISolone Sod Succ 40 MG VIAL IVP SCH (20:32)
[2024-04-24] MEDS: Apixaban 5 MG TAB PO SCH (21:22)
[2024-04-24] MEDS: Gabapentin 300 MG CAP PO SCH (21:22)
[2024-04-24] MEDS: HYDROcodone/Acetaminophen 5/325 mg Tablet PO SCH (21:23)
[2024-04-25 04:54] LABS: #Basophils Less than 0.03 10x3/uL (0.0-0.2); #Eosinophils Less than 0.03 10x3/uL (0.0-0.7); %Basophils 0.1 % (0.0-1.0); %Lymphocytes 7.3 % (21.0-51.0); %Monocytes 2.6 % (0.0-10.0); %Neutrophils 89.7 % (42.0-75.0); Hematocrit 30.1 % (36.0-47.0); Hemoglobin 9.4 g/dL (12.0-16.0); Mean Corpuscular HGB CONC 31.2 g/dL (32.0-36.0); Mean Corpuscular Hemoglobin 29.7 pg (27.0-31.0); Mean Platelet Volume 9.5 fL (7.4-10.4); Platelet Count 321 10x3/uL (130-400); RBC Distribution Width 14.7 % (11.5-14.5); Red Blood Cell (RBC) Count 3.17 mill/uL (4.20-5.40)
[2024-04-25 05:16] LABS: Anion Gap 11 mmol/L (10-20); BUN (Urea Nitrogen) 34 mg/dL (9.8-20.1); Calc. Creatinine Clearance 38 mL/min (70-130); Calcium 8.9 mg/dL (7.8-10.44); Carbon Dioxide 29 mmol/L (23-31); Chloride 103 mmol/L (98-107); Estimated GFR 50; Glucose 167 mg/dL (83-110); Potassium 5.3 mmol/L (3.5-5.1); Sodium 138 mmol/L (136-145)
[2024-04-25 05:22] LABS: Troponin I 0.164 ng/mL (< 0.028)
[2024-04-25 08:24] LABS: ALT (SGPT) 5 U/L (8-55); AST (SGOT) 10 U/L (5-34); Albumin 2.8 g/dL (3.4-4.8); Alkaline Phosphatase 69 U/L (40-110); Bilirubin, Direct 0.1 mg/dL (0.1-0.3); Bilirubin, Total 0.2 mg/dL (0.2-1.2); Phosphorus 2.4 mg/dL (2.3-4.7); Protein, Total 6.6 g/dL (5.8-8.1)
[2024-04-25] MEDS: Sodium Polystyrene Sulfonate 15 GM (60 mL) BOT PO SCH (08:58)
[2024-04-25] MEDS: HYDROcodone/Acetaminophen 10/325 mg Tablet PO PRN (12:25)
[2024-04-25] MEDS: Lactated Ringer's 500 ML IV SCH (12:27)
[2024-04-25] MEDS: Isosorbide Mononitrate 30 MG ER.TAB PO SCH (12:50)
[2024-04-25] MEDS: Ipratropium/Albuterol 3 ML NEB NEB SCH (13:58)
[2024-04-25 16:44] LABS: Anion Gap 14 mmol/L (10-20); Calc. Creatinine Clearance 38 mL/min (70-130); Calcium 8.6 mg/dL (7.8-10.44); Carbon Dioxide 25 mmol/L (23-31); Chloride 103 mmol/L (98-107); Estimated GFR 51; Potassium 4.3 mmol/L (3.5-5.1); Sodium 138 mmol/L (136-145)
[2024-04-25 16:45] LABS: BUN (Urea Nitrogen) 31 mg/dL (9.8-20.1)
[2024-04-25 16:52] LABS: Glucose 448 mg/dL (83-110)
[2024-04-25] MEDS ORDERED: Dextrose 5% in Water 1,000 ML IV PRN (17:08)
[2024-04-25] MEDS ORDERED: Dextrose 50% Abboject 50 ML SYRINGE SLOW IVP PRN (17:08)
[2024-04-25] MEDS ORDERED: Insulin Lispro 100 UNIT/ML 10 ML VIAL SC PRN (17:08)
[2024-04-25] MEDS ORDERED: Glucagon 1 MG/ML KIT IM PRN (17:08)
[2024-04-25 17:33] LABS: Hemoglobin A1c 5.1 % (4.0-6.0)
[2024-04-25] MEDS: Insulin Lispro 100 UNIT/ML 10 ML VIAL SC PRN (17:44)
[2024-04-25] MEDS: Apixaban 2.5 MG TAB PO SCH (20:24)
[2024-04-25] MEDS: Insulin Glargine 30 UNITS/0.3 ML VIAL SC SCH (20:24)
[2024-04-25] MEDS ORDERED: Insulin Glargine 30 UNITS/0.3 ML VIAL SC SCH (21:00)
[2024-04-25 21:17] LABS: Glucose 123 mg/dL (83-110)
[2024-04-26 04:07] LABS: #Basophils Less than 0.03 10x3/uL (0.0-0.2); #Eosinophils Less than 0.03 10x3/uL (0.0-0.7); %Lymphocytes 6.9 % (21.0-51.0); %Monocytes 6.8 % (0.0-10.0); Hematocrit 27.9 % (36.0-47.0); Hemoglobin 8.7 g/dL (12.0-16.0); Mean Corpuscular HGB CONC 31.2 g/dL (32.0-36.0); Mean Corpuscular Hemoglobin 29.3 pg (27.0-31.0); Mean Corpuscular Volume 93.9 fL (78.0-98.0); Platelet Count 283 10x3/uL (130-400); RBC Distribution Width 15.1 % (11.5-14.5); Red Blood Cell (RBC) Count 2.97 mill/uL (4.20-5.40)
[2024-04-26 04:30] LABS: Anion Gap 11 mmol/L (10-20); BUN (Urea Nitrogen) 28 mg/dL (9.8-20.1); Calc. Creatinine Clearance 43 mL/min (70-130); Calcium 8.6 mg/dL (7.8-10.44); Carbon Dioxide 29 mmol/L (23-31); Chloride 103 mmol/L (98-107); Estimated GFR 58; Glucose 121 mg/dL (83-110); Magnesium 1.7 mg/dL (1.6-2.6); Potassium 3.7 mmol/L (3.5-5.1); Sodium 139 mmol/L (136-145)
[2024-04-26] MEDS: predniSONE 20 MG TAB PO SCH (08:47)
[2024-04-26] MEDS: Aspirin 81 mg Enteric Coated Tablet PO SCH (08:47)
[2024-04-26] MEDS: Isosorbide Mononitrate 30 MG ER.TAB PO SCH (08:47)
[2024-04-26] MEDS ORDERED: Isosorbide Mononitrate 60 MG ER.TAB PO SCH (09:00)
[2024-04-26] MEDS ORDERED: Ipratropium/Albuterol 3 ML NEB NEB PRN (09:27)
[2024-04-26 12:15] VITALS: TEMP 97.6
[2024-04-26 12:56] LABS: Glucose 140 mg/dL (83-110)
[2024-04-26 13:21] VITALS: BP 170/74
[2024-04-26 14:42] LABS: O2 Tension (PaO2), arterial 50.1 mmHg (> 60.0)
[2024-04-26] MEDS ORDERED: Ipratropium/Albuterol 3 ML NEB NEB SCH (18:30)
== END 2024-04-26 16:52 | disposition home or self-care (01) | DRG 189 ==
LOC: ERS 06:41 → 2NO 10:56
PROVIDERS: ADMIT Internal Medicine; ATTEND Family Medicine
PROC: 4A033R1 Measurement of Arterial Saturation, Peripheral, Percutaneous Approach (ICD-10-PCS; principal; 2024-04-23)
DX: J96.21 Acute and chronic respiratory failure with hypoxia (principal); G93.41 Metabolic encephalopathy; J95.850 Mechanical complication of respirator; C34.90 Malignant neoplasm of unspecified part of unspecified bronchus or lung; I48.20 Chronic atrial fibrillation, unspecified; I5A Non-ischemic myocardial injury (non-traumatic); N17.9 Acute kidney failure, unspecified; J44.1 Chronic obstructive pulmonary disease with (acute) exacerbation; I25.10 Atherosclerotic heart disease of native coronary artery without angina pectoris; E11.22 Type 2 diabetes mellitus with diabetic chronic kidney disease; N18.30 Chronic kidney disease, stage 3 unspecified; I12.9 Hypertensive chronic kidney disease with stage 1 through stage 4 chronic kidney disease, or unspecified chronic kidney disease; Z95.0 Presence of cardiac pacemaker; Z95.1 Presence of aortocoronary bypass graft; Z95.5 Presence of coronary angioplasty implant and graft; Z87.891 Personal history of nicotine dependence; E87.5 Hyperkalemia; Z99.81 Dependence on supplemental oxygen; I16.0 Hypertensive urgency
CPT/HCPCS: 36415; 36416; 36600; 70450; 71045; 71275; 80048; 80053; 80076; 81001; 82805; 83036; 83735; 83880; 84100; 84484; 84550; 85025; 85379; 93005; 93010; 93306; 94640; 94760; 96374; J1815; J1940; J2919; J7120; J7512; J7620; Q9967

== ENCOUNTER 2024-05-06 09:33 | Day surgery (SDC) | payer MEDICARE, OTHER ==
[~2024-05-06 09:33] MED LIST changes: +Acetaminophen 500 MG TAB PO SCH; -Iopamidol-370 76% 500 ML MDV (1 ML CHARGE) ONE; +diphenhydrAMINE 25 MG CAP PO SCH
== END 2024-05-06 09:57 | disposition short-term general hospital (02) ==
LOC: ONC/OP 09:33
PROVIDERS: ATTEND Internal Medicine
DX: D64.9 Anemia, unspecified (principal)
CPT/HCPCS: 99212; G0463

== ENCOUNTER 2024-05-06 10:05 | Emergency (ER) | payer MEDICARE, OTHER ==
[2024-05-06 10:53] LABS: #Basophils Less than 0.03 10x3/uL (0.0-0.2); #Eosinophils Less than 0.03 10x3/uL (0.0-0.7); %Basophils 0.3 % (0.0-1.0); %Lymphocytes 2.7 % (21.0-51.0); %Neutrophils 93.7 % (42.0-75.0); Hemoglobin 7.4 g/dL (12.0-16.0); Mean Corpuscular HGB CONC 29.6 g/dL (32.0-36.0); Mean Corpuscular Hemoglobin 29.4 pg (27.0-31.0); Mean Corpuscular Volume 99.2 fL (78.0-98.0); Mean Platelet Volume 9.3 fL (7.4-10.4); Platelet Count 207 10x3/uL (130-400); RBC Distribution Width 15.3 % (11.5-14.5); Red Blood Cell (RBC) Count 2.52 mill/uL (4.20-5.40)
[2024-05-06 11:14] LABS: Troponin I 0.012 ng/mL (< 0.028)
[2024-05-06 11:16] LABS: ALT (SGPT) 14 U/L (Less than 34); AST (SGOT) 18 U/L (11-34); Albumin 2.9 g/dL (3.1-4.5); Alkaline Phosphatase 59 U/L (40-110); Anion Gap 13 mmol/L (10-20); BUN (Urea Nitrogen) 23 mg/dL (9.8-20.1); Bilirubin, Total 0.3 mg/dL (0.3-1.2); Calc. Creatinine Clearance 0 mL/min (70-130); Calcium 8.3 mg/dL (7.8-10.44); Carbon Dioxide 30 mmol/L (23-31); Chloride 106 mmol/L (98-107); Estimated GFR 56; Globulin 2.7 g/dL (2.4-3.5); Glucose 83 mg/dL (83-110); Potassium 4.9 mmol/L (3.5-5.1); Protein, Total 5.6 g/dL (5.8-8.1); Sodium 144 mmol/L (136-145)
[2024-05-06] MEDS ORDERED: Furosemide 20 MG (2 mL) VIAL ONE (12:19)
== END 2024-05-06 20:32 | disposition home or self-care (01) ==
LOC: ERS 10:05
DX: I11.0 Hypertensive heart disease with heart failure (principal); I50.9 Heart failure, unspecified; D64.9 Anemia, unspecified; E11.9 Type 2 diabetes mellitus without complications; F17.210 Nicotine dependence, cigarettes, uncomplicated; Z95.5 Presence of coronary angioplasty implant and graft; Z95.0 Presence of cardiac pacemaker
CPT/HCPCS: 36430; 71046; 80053; 83880; 84484; 85025; 86850; 86900; 86901; 86920; 93005; 94760; J1940; P9016; 36415; 96374

== ENCOUNTER 2024-11-16 14:27 | Outpatient (CLI) | payer MEDICARE, OTHER | END 2024-11-16 14:28 | disposition home or self-care (01) | LOC: BICRAD 14:27 | PROVIDERS: ATTEND Family Medicine | DX: Z04.3 Encounter for examination and observation following other accident (principal); W19.XXXA Unspecified fall, initial encounter | CPT/HCPCS: 71111 ==

== ENCOUNTER 2024-11-23 16:11 | Emergency (ER) | payer MEDICARE, OTHER ==
[~2024-11-23 16:11] MED LIST changes: -Acetaminophen 500 MG TAB PO SCH; +Iopamidol-370 76% 500 ML MDV (1 ML CHARGE) ONE; -diphenhydrAMINE 25 MG CAP PO SCH
[2024-11-23 18:26] LABS: #Basophils 0.04 10x3/uL (0.0-0.2); #Eosinophils 0.32 10x3/uL (0.0-0.7); #Monocytes 0.36 10x3/uL (0.11-0.59); #Neutrophils 3.71 10x3/uL (1.40-6.50); %Basophils 0.8 % (0.0-1.0); %Eosinophils 6.3 % (0.0-10.0); %Lymphocytes 13.1 % (21.0-51.0); %Monocytes 7.0 % (0.0-10.0); %Neutrophils 72.6 % (42.0-75.0); Hematocrit 43.9 % (36.0-47.0); Hemoglobin 13.8 g/dL (12.0-16.0); Mean Corpuscular Hemoglobin 30.6 pg (27.0-31.0); Mean Corpuscular Volume 97.3 fL (78.0-98.0); Platelet Count 220 10x3/uL (130-400); Red Blood Cell (RBC) Count 4.51 mill/uL (4.20-5.40); White Blood Cell (WBC) Count 5.11 10x3/uL (4.8-10.8)
[2024-11-23 18:45] LABS: ALT (SGPT) 9 U/L (Less than 34); AST (SGOT) 20 U/L (11-34); Albumin 3.7 g/dL (3.1-4.5); Alkaline Phosphatase 67 U/L (40-110); Anion Gap 14 mmol/L (10-20); BUN (Urea Nitrogen) 25 mg/dL (9.8-20.1); Bilirubin, Total 0.3 mg/dL (0.3-1.2); Calc. Creatinine Clearance 0 mL/min (70-130); Calcium 9.5 mg/dL (7.8-10.44); Carbon Dioxide 23 mmol/L (23-31); Chloride 108 mmol/L (98-107); Globulin 3.5 g/dL (2.4-3.5); Glucose 98 mg/dL (83-110); Potassium 5.0 mmol/L (3.5-5.1); Sodium 140 mmol/L (136-145)
[2024-11-23] MEDS ORDERED: hydrALAZINE 20 MG/ML VIAL ONE ×2 (20:45→21:12)
== END 2024-11-23 22:00 | disposition home or self-care (01) ==
LOC: ERS 16:11
DX: K92.2 Gastrointestinal hemorrhage, unspecified (principal); N17.9 Acute kidney failure, unspecified; E11.9 Type 2 diabetes mellitus without complications; E78.5 Hyperlipidemia, unspecified; I10 Essential (primary) hypertension; I25.10 Atherosclerotic heart disease of native coronary artery without angina pectoris; J44.9 Chronic obstructive pulmonary disease, unspecified; F17.210 Nicotine dependence, cigarettes, uncomplicated; Z95.0 Presence of cardiac pacemaker; Z79.899 Other long term (current) drug therapy; Z79.84 Long term (current) use of oral hypoglycemic drugs; Z79.01 Long term (current) use of anticoagulants; Z95.5 Presence of coronary angioplasty implant and graft
CPT/HCPCS: 71275; 74177; 80053; 83605; 83690; 85025; 86850; 86900; 86901; 93005; 94760; J0360; Q9967; 36415; 96374; 96375

== ENCOUNTER 2024-12-13 13:19 | Emergency (ER) | payer MEDICARE, OTHER | END 2024-12-13 16:18 | disposition home or self-care (01) | LOC: ERS 13:19 | DX: S00.83XA Contusion of other part of head, initial encounter (principal); E11.9 Type 2 diabetes mellitus without complications; I10 Essential (primary) hypertension; J44.9 Chronic obstructive pulmonary disease, unspecified; I48.91 Unspecified atrial fibrillation; I25.10 Atherosclerotic heart disease of native coronary artery without angina pectoris; F17.210 Nicotine dependence, cigarettes, uncomplicated; N17.9 Acute kidney failure, unspecified; Z95.5 Presence of coronary angioplasty implant and graft; Z95.0 Presence of cardiac pacemaker; W20.8XXA Other cause of strike by thrown, projected or falling object, initial encounter; D50.0 Iron deficiency anemia secondary to blood loss (chronic); Z79.899 Other long term (current) drug therapy | CPT/HCPCS: 70450; 70486; 72125; 80053; 84436; 84443 ==